=== PATIENT | male | born 1980 | race African-American/Black ===

== ENCOUNTER 2017-01-18 15:34 | Observation (INO) | payer BC ==
[2017-01-18] MEDS ORDERED: SODIUM CHLORIDE 0.9% 1,000 ML IV STA (16:17)
--- NOTE | 2017-01-18 16:21 | ED ---
General Adult HPI - General Chief complaint: Recheck/Abnormal Lab/Rx Stated complaint: Hyperglycemia Time Seen by Provider: 01/18/17 16:10 Source: patient, RN notes reviewed Mode of arrival: ambulatory Limitations: no limitations - History of Present Illness Initial comments: Patient is a 36-year-old male who presents emergency room today from urgent care with elevated blood sugar. Patient does admit that his had increased thirst and urination recently. Patient does admit that his family member is a diabetic checked his sugar the other day was grating 400. States child was family doctor but is now out of network. He states that he did go to an urgent care and advised him come here to the emergency room. He states that he checked his sugar there was greater than 400. He denies any other complaints or associated symptoms. Patient denies any recent fever, chills, shortness of breath, chest pain, back pain, abdominal pain, nausea or vomiting, numbness or tingling, dysuria or hematuria, constipation or diarrhea, headaches or visual changes, or any other complaints. - Related Data Home Medications Medication Instructions Recorded Confirmed L.acidoph,Paracasei, B.lactis 1 cap PO DAILY 06/29/15 01/18/17 [Probiotic] Fluticasone Nasal [place] [Flonase 1 spr EA NOSTRIL DAILY PRN 01/18/17 01/18/17 Nasal [place]] Allergies Allergy/AdvReac Type Severity Reaction Status Date / Time No Known Allergies Allergy Verified 01/18/17 16:33 Review of Systems ROS Statement: Those systems with pertinent positive or pertinent negative responses have been documented in the HPI. ROS Other: All systems not noted in ROS Statement are negative. Past Medical History Past Medical History: Liver Disease Additional Past Medical History / Comment(s): Non alocoholic fatty liver History of Any Multi-Drug Resistant Organisms: None Reported Past Surgical History: No Surgical Hx Reported Additional Past Surgical History / Comment(s): dental surg Past Anesthesia/Blood Transfusion Reactions: Unable to Obtain Additional Past Anesthesia/Blood Transfusion Reaction / Comment(s): no surg. Past Psychological History: No Psychological Hx Reported Smoking Status: Former smoker Past Alcohol Use History: Occasional Past Drug Use History: None Reported - Past Family History Mother Family Medical History: No Reported History General Exam - General Exam Comments Initial Comments: General: The patient is awake and alert, in no distress, and does not appear acutely ill. Eye: Pupils are equal, round and reactive to light, extra-ocular movements are intact. No nystagmus. There is normal conjunctiva bilaterally. No signs of icterus. Ears, nose, mouth and throat: There are moist mucous membranes and no oral lesions. Neck: The neck is supple, there is no tenderness or JVD. Cardiovascular: There is a regular rate and rhythm. No murmur, rub or gallop is appreciated. Respiratory: Lungs are clear to auscultation, respirations are non-labored, breath sounds are equal. No wheezes, stridor, rales, or rhonchi. Gastrointestinal: Soft, non-distended, non-tender abdomen without masses or organomegaly noted. There is no rebound or guarding present. No CVA tenderness. Bowel sounds are unremarkable. Musculoskeletal: Normal ROM, no tenderness. Strength 5/5. Sensation intact. Pulses equal bilaterally 2+. Neurological: A&O x 3. CN II-XII intact, There are no obvious motor or sensory deficits. Coordination appears grossly intact. Speech is normal. Skin: Skin is warm and dry and no rashes or lesions are noted. Psychiatric: Cooperative, appropriate mood & affect, normal judgment. Limitations: no limitations Course Vital Signs 01/18/17 01/18/17 15:38 17:41 Temperature 99 F Pulse Rate 105 H 101 H Respiratory 18 18 Rate Blood Pressure 147/95 158/96 O2 Sat by Pulse 99 97 Oximetry Medical Decision Making - Medical Decision Making Patient reexamined at this time shows no signs of distress. He has had polyuria and polydipsia. Patient asked on positive. Patient does have 4+ glucose and 3+ ketones in his urine. Patient will be admitted for new onset diabetes. Started on the DKA orders. Patient is aware the plan states understanding and is in agreement. - Lab Data Result diagrams: 01/18/17 16:22 01/18/17 16:22 Lab Results 01/18/17 01/18/17 01/18/17 Range/Units 16:22 16:22 16:44 WBC 8.9 (3.8-10.6) k/uL RBC 5.73 (4.30-5.90) m/uL Hgb 16.4 (13.0-17.5) gm/dL Hct 48.7 (39.0-53.0) % MCV 85.0 (80.0-100.0) fL MCH 28.6 (25.0-35.0) pg MCHC 33.6 (31.0-37.0) g/dL RDW 13.2 (11.5-15.5) % Plt Count 294 (150-450) k/uL Neutrophils % 70 % Lymphocytes % 22 % Monocytes % 5 % Eosinophils % 1 % Basophils % 1 % Neutrophils # 6.2 (1.3-7.7) k/uL Lymphocytes # 2.0 (1.0-4.8) k/uL Monocytes # 0.4 (0-1.0) k/uL Eosinophils # 0.1 (0-0.7) k/uL Basophils # 0.1 (0-0.2) k/uL Sodium 135 L (137-145) mmol/L Potassium 4.1 (3.5-5.1) mmol/L Chloride 99 (98-107) mmol/L Carbon Dioxide 21 L (22-30) mmol/L Anion Gap 15 mmol/L BUN 11 (9-20) mg/dL Creatinine 0.70 (0.66-1.25) mg/dL Est GFR (MDRD) Af Amer >60 (>60 ml/min/1.73 sqM) Est GFR (MDRD) Non-Af >60 (>60 ml/min/1.73 sqM) Glucose 287 H (74-99) mg/dL POC Glucose (mg/dL) (75-99) mg/dL POC Glu Traffic Sergeant ID Calcium 10.2 (8.4-10.2) mg/dL Total Bilirubin 0.6 (0.2-1.3) mg/dL AST 86 H (17-59) U/L ALT 249 H (21-72) U/L Alkaline Phosphatase 118 (38-126) U/L Total Protein 8.7 H (6.3-8.2) g/dL Albumin 5.0 (3.5-5.0) g/dL Urine Color Light Yellow Urine Appearance Clear (Clear) Urine pH 5.0 (5.0-8.0) Ur Specific [place] 1.026 (1.001-1.035) Urine Protein Negative (Negative) Urine Glucose (UA) 4+ H (Negative) Urine Ketones 3+ H (Negative) Urine Blood Negative (Negative) Urine Nitrite Negative (Negative) Urine Bilirubin Negative (Negative) Urine Urobilinogen <2.0 (<2.0) mg/dL Ur Leukocyte Esterase Negative (Negative) Acetone, Qual Positive (Negative) 01/18/17 Range/Units 17:32 WBC (3.8-10.6) k/uL RBC (4.30-5.90) m/uL Hgb (13.0-17.5) gm/dL Hct (39.0-53.0) % MCV (80.0-100.0) fL MCH (25.0-35.0) pg MCHC (31.0-37.0) g/dL RDW (11.5-15.5) % Plt Count (150-450) k/uL Neutrophils % % Lymphocytes % % Monocytes % % Eosinophils % % Basophils % % Neutrophils # (1.3-7.7) k/uL Lymphocytes # (1.0-4.8) k/uL Monocytes # (0-1.0) k/uL Eosinophils # (0-0.7) k/uL Basophils # (0-0.2) k/uL Sodium (137-145) mmol/L Potassium (3.5-5.1) mmol/L Chloride (98-107) mmol/L Carbon Dioxide (22-30) mmol/L Anion Gap mmol/L BUN (9-20) mg/dL Creatinine (0.66-1.25) mg/dL Est GFR (MDRD) Af Amer (>60 ml/min/1.73 sqM) Est GFR (MDRD) Non-Af (>60 ml/min/1.73 sqM) Glucose (74-99) mg/dL POC Glucose (mg/dL) 238 H (75-99) mg/dL POC Glu Traffic Sergeant ID Bowling, Ana Calcium (8.4-10.2) mg/dL Total Bilirubin (0.2-1.3) mg/dL AST (17-59) U/L ALT (21-72) U/L Alkaline Phosphatase (38-126) U/L Total Protein (6.3-8.2) g/dL Albumin (3.5-5.0) g/dL Urine Color Urine Appearance (Clear) Urine pH (5.0-8.0) Ur Specific [place] (1.001-1.035) Urine Protein (Negative) Urine Glucose (UA) (Negative) Urine Ketones (Negative) Urine Blood (Negative) Urine Nitrite (Negative) Urine Bilirubin (Negative) Urine Urobilinogen (<2.0) mg/dL Ur Leukocyte Esterase (Negative) Acetone, Qual (Negative) Disposition Clinical Impression: New onset type 2 diabetes mellitus Disposition: ADMITTED IP TO THIS [facility] Condition: Stable Referrals: None,Stated [Primary Care Provider] - 1-2 days Time of Disposition: 17:53
[2017-01-18 16:33] LABS: Basophils # (A) 0.1 k/uL (0-0.2); Basophils % (A) 1 %; CH 29.3; CHCM 34.6; Eosinophils # (A) 0.1 k/uL (0-0.7); Eosinophils % (A) 1 %; HCT 48.7 % (39.0-53.0); HDW 2.74; HGB 16.4 gm/dL (13.0-17.5); Luc # (Auto) 0.17; Luc % (Auto) 2; Lymphocytes % (A) 22 %; MCH 28.6 pg (25.0-35.0); MCHC 33.6 g/dL (31.0-37.0); Mean Platelet Volume 7.7; Monocytes # (A) 0.4 k/uL (0-1.0); Monocytes % (A) 5 %; Neutrophils # (A) 6.2 k/uL (1.3-7.7); Neutrophils % (A) 70 %; RBC 5.73 m/uL (4.30-5.90); RDW 13.2 % (11.5-15.5); WBC 8.9 k/uL (3.8-10.6); WBC (Perox) 8.55
[2017-01-18 16:43] LABS: ALT 249 U/L (21-72); AST 86 U/L (17-59); Alkaline Phosphatase 118 U/L (38-126); Anion Gap 15 mmol/L; Blood Urea Nitrogen 11 mg/dL (9-20); Calcium 10.2 mg/dL (8.4-10.2); Carbon Dioxide 21 mmol/L (22-30); Chloride 99 mmol/L (98-107); Glucose 287 mg/dL (74-99); Non-African American GFR(MDRD) >60 (>60 ml/min/1.73 sqM); Potassium 4.1 mmol/L (3.5-5.1); Sodium 135 mmol/L (137-145); Total Bilirubin 0.6 mg/dL (0.2-1.3); Total Protein 8.7 g/dL (6.3-8.2)
[2017-01-18 16:55] LABS: Appearance,Urine Clear (Clear); Bilirubin,Urine Negative (Negative); Glucose,Urine (UA) 4+ (Negative); Leukocyte Esterase,Urine Negative (Negative); Nitrite,Urine Negative (Negative); Protein,Urine Negative (Negative); Specific Gravity,Urine 1.026 (1.001-1.035); UA Billing (MACRO vs. MICRO) CHEM; Urobilinogen,Urine <2.0 mg/dL (<2.0)
[2017-01-18 17:19] LABS: Ketones,Urine 3+ (Negative)
[2017-01-18 17:46] LABS: Glucose,Whole Blood 238 mg/dL (75-99)
[2017-01-18 18:50] LABS: Glucose,Whole Blood 213 mg/dL (75-99)
[2017-01-18 19:51] LABS: Glucose,Whole Blood 198 mg/dL (75-99)
[2017-01-18] MEDS: INSULIN REGULAR 100 UNIT in SODIUM CHLORIDE 0.9% 100 ML IV SCH (20:24)
[2017-01-18 20:50] LABS: Anion Gap 10 mmol/L; Blood Urea Nitrogen 9 mg/dL (9-20); Carbon Dioxide 25 mmol/L (22-30); Chloride 101 mmol/L (98-107); Glucose 221 mg/dL (74-99); Non-African American GFR(MDRD) >60 (>60 ml/min/1.73 sqM); Phosphorus 3.5 mg/dL (2.5-4.5); Sodium 136 mmol/L (137-145)
[2017-01-18 21:08] LABS: Glucose,Whole Blood 164 mg/dL (75-99)
[2017-01-18] MEDS: SODIUM CHLORIDE 0.9% 1,000 ML IV SCH (22:05)
[2017-01-18] MEDS: D5-0.45% NACL WITH KCL 20MEQ/L 1,000 ML IV SCH (22:05)
[2017-01-18 22:20] LABS: Glucose,Whole Blood 142 mg/dL (75-99)
[2017-01-18 23:17] LABS: Glucose,Whole Blood 127 mg/dL (75-99)
[2017-01-19 00:08] LABS: Glucose,Whole Blood 116 mg/dL (75-99)
[2017-01-19] MEDS: SODIUM CHLORIDE 0.9% 1,000 ML IV SCH ×5 (00:19→17:50)
[2017-01-19 00:55] LABS: Anion Gap 7 mmol/L; Blood Urea Nitrogen 8 mg/dL (9-20); Carbon Dioxide 26 mmol/L (22-30); Chloride 103 mmol/L (98-107); Glucose 137 mg/dL (74-99); Non-African American GFR(MDRD) >60 (>60 ml/min/1.73 sqM); Potassium 3.6 mmol/L (3.5-5.1); Sodium 136 mmol/L (137-145)
[2017-01-19 01:12] LABS: Glucose,Whole Blood 156 mg/dL (75-99)
[2017-01-19 02:13] LABS: Glucose,Whole Blood 166 mg/dL (75-99)
[2017-01-19] MEDS ORDERED: INSULIN NPH 300 UNIT/3 ML VIAL SQ ONE (02:20)
[2017-01-19 03:05] LABS: Glucose,Whole Blood 216 mg/dL (75-99)
[2017-01-19] MEDS: INSULIN REGULAR 100 UNIT in SODIUM CHLORIDE 0.9% 100 ML IV SCH (04:12)
[2017-01-19] MEDS: D5-0.45% NACL WITH KCL 20MEQ/L 1,000 ML IV SCH ×3 (05:10→14:29)
[2017-01-19 06:09] LABS: Glucose,Whole Blood 220 mg/dL (75-99)
[2017-01-19 06:26] LABS: Anion Gap 9 mmol/L; Blood Urea Nitrogen 7 mg/dL (9-20); Carbon Dioxide 24 mmol/L (22-30); Chloride 103 mmol/L (98-107); Non-African American GFR(MDRD) >60 (>60 ml/min/1.73 sqM); Phosphorus 3.5 mg/dL (2.5-4.5); Potassium 3.9 mmol/L (3.5-5.1); Sodium 136 mmol/L (137-145)
[2017-01-19] MEDS: INSULIN ASPART 100 UNIT/ML 1 ML 10 ML VIAL SQ SCH ×7 (07:05→21:30)
[2017-01-19] MEDS: IBUPROFEN 600 MG TAB PO PRN (08:19)
[2017-01-19 10:49] VITALS: BMI 43.6
[2017-01-19 11:30] LABS: Glucose,Whole Blood 217 mg/dL (75-99)
[2017-01-19] MEDS ORDERED: FLUTICASONE 50MCG/SPRAY NASAL 16GM EA NOSTRIL PRN (12:50)
[2017-01-19 16:44] LABS: Glucose,Whole Blood 177 mg/dL (75-99)
[2017-01-19] MEDS ORDERED: HYDROcodone/APAP 5-325MG 1 EACH TAB PO PRN (16:49)
[2017-01-19] MEDS: metFORMIN 500 MG TAB PO SCH (17:30)
--- NOTE | 2017-01-19 18:41 | HP ---
HISTORY AND PHYSICAL DATE OF SERVICE: 01/19/2017. CHIEF COMPLAINT: Hyperglycemia. HISTORY OF PRESENT ILLNESS: This 36-year-old gentleman with a past history of liver disease and nonalcoholic fatty liver, history of hay fever, being followed by no primary physician in the outpatient setting apparently was with his friend who had diabetes mellitus and they were checking blood sugar blood sugars which were extremely high. The patient had complains of polyuria, polydipsia, and other changes and the patient came to [facility] and admitted for further evaluation and treatment. On admission, the baseline labs showed a glucose elevated and serum acetone was positive also. There is no history of fever, rigors, no headache, loss of consciousness. PAST MEDICAL HISTORY: Of liver disease and history of fatty liver and hay fever. MEDICATIONS: Prior to admission include: 1. Flonase nasal spray. 2. Lactobacillus 1 daily. ALLERGIES: None. FAMILY HISTORY: History of diabetes in the family. SOCIAL HISTORY: Previous smoker. No history of current smoking, alcohol intake. REVIEW OF SYSTEMS: ENT: No diminished hearing or vision. Cardio system: No angina or palpitations. Respirations: No cough. GI no nausea. as mentioned earlier. Nervous systems: No numbness or weakness. Allergy/Immunology: No asthma or hayfever. Musculoskeletal as mentioned earlier. Hematology/Oncology: No history of anemia. Endocrine: As mentioned earlier. CONSTITUTIONAL: As mentioned earlier. Dermatology: Negative. Rheumatology: Negative. Psychiatric: As mentioned earlier. PHYSICAL EXAMINATION: The patient is alert and oriented times three. Pulse 93, blood pressure 149/80, respiration 18, temp 97.3, pulse ox 98% on room air. HEENT: Conjunctivae normal. Oral mucosa moist. Neck is no jugular venous distention. No No carotid bruit. No lymph node enlargement. Cardiovascular system: S1, S2 muffled. Respiratory: Breath sounds diminished in the bases. A few scattered rhonchi. No crackles. ABDOMEN: Soft, nontender. No mass palpable. No hepatosplenomegaly. Obese. Legs no edema, no swelling. Central nervous system: Higher functions as mentioned earlier. Moves all four extremities. No focal deficits. Lymphatics: No lymph nodes palpable in the neck, axillae or groin. Skin no ulcer, rashes or bleeding. LABS: Accu-Cheks 222, 70, 177, sodium 136. ASSESSMENT: 1. Diabetes mellitus type 1, possibly new onset with uncontrolled with possibly early ketoacidosis. 2. Hyponatremia. 3. Increased AST/ALT hepatitis of undetermined etiology. 4. Obesity, with body mass index of 43.6. 5. History of nonalcoholic fatty liver disease. 6. History hay fever. 7. Remote history of nicotine dependence. RECOMMENDATIONS AND DISCUSSION: This 36-year-old gentleman who presented with multiple complex medical issues, we will monitor the patient closely, continue the current management and symptomatic treatment. Otherwise we will start the patient on insulin. Hemoglobin A1c is not available. Otherwise, overall prognosis extremely guarded because of multiple complex medical issues and I would also recommend Glucophage also in a small dose. See orders for details. I would also recommend DVT prophylaxis and as well as GI prophylaxis. Prognosis guarded. Further recommendations to follow. MMODL / IJN: [id number] /
[2017-01-19 21:07] LABS: Glucose,Whole Blood 204 mg/dL (75-99)
[2017-01-19] MEDS: HEPARIN SODIUM,PORCINE 5,000 UNIT/ML 1 ML VIAL SQ SCH (21:30)
[2017-01-19] MEDS: INSULIN DETEMIR 100 UNIT/ML 10 ML VIAL SQ SCH (21:30)
[2017-01-20 06:09] LABS: Glucose,Whole Blood 194 mg/dL (75-99)
[2017-01-20 06:19] LABS: Basophils % (A) 1 %; CHCM 33.4; Eosinophils # (A) 0.1 k/uL (0-0.7); Eosinophils % (A) 1 %; HCT 45.2 % (39.0-53.0); HDW 2.56; HGB 14.6 gm/dL (13.0-17.5); Luc # (Auto) 0.14; Luc % (Auto) 3; Lymphocytes # (A) 1.6 k/uL (1.0-4.8); Lymphocytes % (A) 30 %; MCH 28.1 pg (25.0-35.0); MCHC 32.2 g/dL (31.0-37.0); MCV 87.2 fL (80.0-100.0); Mean Platelet Volume 7.7; Monocytes # (A) 0.4 k/uL (0-1.0); Monocytes % (A) 8 %; Neutrophils # (A) 3.1 k/uL (1.3-7.7); Neutrophils % (A) 58 %; RBC 5.19 m/uL (4.30-5.90); RDW 14.6 % (11.5-15.5); WBC 5.3 k/uL (3.8-10.6); WBC (Perox) 5.17
[2017-01-20 06:30] LABS: ALT 262 U/L (21-72); AST 105 U/L (17-59); Alkaline Phosphatase 91 U/L (38-126); Anion Gap 6 mmol/L; Blood Urea Nitrogen 5 mg/dL (9-20); Calcium 8.9 mg/dL (8.4-10.2); Carbon Dioxide 25 mmol/L (22-30); Chloride 106 mmol/L (98-107); Glucose 204 mg/dL (74-99); Non-African American GFR(MDRD) >60 (>60 ml/min/1.73 sqM); Potassium 3.7 mmol/L (3.5-5.1); Sodium 137 mmol/L (137-145); Total Bilirubin 0.7 mg/dL (0.2-1.3); Total Protein 6.3 g/dL (6.3-8.2)
[2017-01-20] MEDS: SODIUM CHLORIDE 0.9% 1,000 ML IV SCH ×4 (06:31→21:30)
[2017-01-20] MEDS: INSULIN ASPART 100 UNIT/ML 1 ML 10 ML VIAL SQ SCH ×7 (07:00→21:30)
[2017-01-20] MEDS: PANTOPRAZOLE 40 MG TABLET PO SCH (07:01)
[2017-01-20] MEDS: metFORMIN 500 MG TAB PO SCH ×2 (07:01→16:46)
[2017-01-20] MEDS: LACTOBACILLUS ACIDOPH & BULGAR 1 EACH PACKET PO SCH (08:42)
[2017-01-20] MEDS: HEPARIN SODIUM,PORCINE 5,000 UNIT/ML 1 ML VIAL SQ SCH ×2 (08:44→21:30)
[2017-01-20 11:49] LABS: Glucose,Whole Blood 201 mg/dL (75-99)
[2017-01-20 16:37] LABS: Glucose,Whole Blood 94 mg/dL (75-99)
--- NOTE | 2017-01-20 16:45 | PN ---
PROGRESS NOTE DATE OF SERVICE: 01/20/2017 INTERVAL HISTORY: This 36-year-old gentleman admitted with new onset diabetes type 1 and possibly as well as hypoglycemia is being closely monitored at this time. The patient is still learning how to take injections. Diabetic education is underway. No chest pain. No palpitations. No fever. EXAM: Alert, oriented times three. Pulse 79. Blood pressure 140/74, respiration 18, temperature 97.8, pulse ox 97% on room air. HEENT: Conjunctivae normal. NECK: No jugular venous distention. Cardiovascular: S1, S2 muffled. Respiratory: Breath sounds diminished at the bases. No rhonchi and no crackles. Abdomen is soft, obese, nontender. Legs are no edema. Central nervous system: No focal deficits. LABS: Accu-Cheks 204, 194, 201. AST, ALT is elevated. Albumin is 3.4. ASSESSMENT: 1. Diabetes type 1 new onset uncontrolled with possibly early ketoacidosis present on admission. 2. Hyponatremia. 3. Increased AST, ALT, hepatitis of undetermined etiology. 4. Obesity with body mass index 43.6. 5. History of nonalcoholic fatty liver disease. 6. History of hayfever. 7. Remote history of nicotine dependence. RECOMMENDATIONS AND DISCUSSION: Recommend to continue current medications. Continue with monitoring, symptomatic treatment. Continue current medications. Repeat labs. Otherwise monitor blood sugars closely. Patient is on insulin. Diabetic education. records manager to check for the coverage and affordability. Otherwise, monitor. Prognosis guarded. Further recommendations to follow. MMODL / IJN: [id number] /
[2017-01-20] MEDS: IBUPROFEN 600 MG TAB PO PRN ×2 (16:46→21:32)
[2017-01-20] MEDS: INSULIN DETEMIR 100 UNIT/ML 10 ML VIAL SQ SCH (21:30)
[2017-01-20 21:31] LABS: Glucose,Whole Blood 142 mg/dL (75-99)
[2017-01-21] MEDS: SODIUM CHLORIDE 0.9% 1,000 ML IV SCH ×2 (05:57→06:48)
[2017-01-21 06:07] LABS: Glucose,Whole Blood 164 mg/dL (75-99)
[2017-01-21 06:34] LABS: Basophils % (A) 0 %; CH 29.1; CHCM 33.7; Eosinophils # (A) 0.1 k/uL (0-0.7); Eosinophils % (A) 1 %; HCT 43.3 % (39.0-53.0); HDW 2.77; HGB 14.2 gm/dL (13.0-17.5); Luc # (Auto) 0.12; Luc % (Auto) 2; Lymphocytes # (A) 1.7 k/uL (1.0-4.8); Lymphocytes % (A) 29 %; MCH 28.5 pg (25.0-35.0); MCHC 32.9 g/dL (31.0-37.0); MCV 86.6 fL (80.0-100.0); Mean Platelet Volume 7.1; Monocytes # (A) 0.5 k/uL (0-1.0); Monocytes % (A) 8 %; Neutrophils # (A) 3.6 k/uL (1.3-7.7); Neutrophils % (A) 60 %; RDW 13.3 % (11.5-15.5); WBC (Perox) 5.51
[2017-01-21 06:48] LABS: ALT 255 U/L (21-72); AST 84 U/L (17-59); Alkaline Phosphatase 94 U/L (38-126); Anion Gap 8 mmol/L; Blood Urea Nitrogen 6 mg/dL (9-20); Calcium 9.2 mg/dL (8.4-10.2); Carbon Dioxide 28 mmol/L (22-30); Chloride 102 mmol/L (98-107); Cholesterol 206 mg/dL (<200); Glucose 176 mg/dL (74-99); HDL Cholesterol 45 mg/dL (40-60); Non-African American GFR(MDRD) >60 (>60 ml/min/1.73 sqM); Potassium 3.6 mmol/L (3.5-5.1); Sodium 138 mmol/L (137-145); Total Bilirubin 0.4 mg/dL (0.2-1.3); Total Protein 6.5 g/dL (6.3-8.2)
[2017-01-21] MEDS: INSULIN ASPART 100 UNIT/ML 1 ML 10 ML VIAL SQ SCH ×4 (07:01→12:07)
[2017-01-21] MEDS: PANTOPRAZOLE 40 MG TABLET PO SCH (07:01)
[2017-01-21] MEDS: metFORMIN 500 MG TAB PO SCH (07:01)
[2017-01-21] MEDS: HEPARIN SODIUM,PORCINE 5,000 UNIT/ML 1 ML VIAL SQ SCH (08:04)
[2017-01-21] MEDS: LACTOBACILLUS ACIDOPH & BULGAR 1 EACH PACKET PO SCH (08:05)
[2017-01-21 11:47] VITALS: BP 137/93; PULSE 90; RESP 18; TEMP 98
[2017-01-21 12:03] LABS: Glucose,Whole Blood 187 mg/dL (75-99)
--- NOTE | 2017-01-21 14:57 | P.DS ---
Providers Date of admission: 01/18/17 17:56 Attending physician: Mendel Olea Primary care physician: Stated None Hospital Course: This 36-year-old gent woman was admitted with a new onset diabetes was type I and possibly early ketoacidosis. Patient was treated with the insulin. Patient improved significantly. Patient be discharged in a stable condition with guarded prognosis. On exam vitals are stable. Cardio S1 and S2 normal. Respirator system clear to auscultation. Abdomen soft nontender. Final diagnosis 1. Diabetes mellitus type 1 onset uncontrolled with a possible early ketoacidosis present on admission. 2. Hyponatremia. 3. Increased AST ALT hepatitis of undetermined etiology. 4. Obesity body mass and is up at 43.6. 5. History of nonalcoholic fatty liver disease. 6. History of hayfever. 7. Remote h/o nicotine dependence. Patient Condition at Discharge: Stable Plan - Discharge Summary Discharge Rx Participant: No New Discharge Prescriptions: New Insulin Aspart [NovoLOG (formulary)] 14 unit SQ AC-TID #1 vial Insulin Detemir [Levemir] 42 unit SQ HS #1 vial Continue L.acidoph,Paracasei, B.lactis [Probiotic] 1 cap PO DAILY Fluticasone Nasal [place] [Flonase Nasal [place]] 1 spr EA NOSTRIL DAILY PRN PRN Reason: Allergy Symptoms Discharge Medication List L.acidoph,Paracasei, B.lactis [Probiotic] 1 cap PO DAILY 06/29/15 [History] Fluticasone Nasal [place] [Flonase Nasal [place]] 1 spr EA NOSTRIL DAILY PRN [History] Insulin Aspart [NovoLOG (formulary)] 14 unit SQ AC-TID #1 vial 01/21/17 [Rx] Insulin Detemir [Levemir] 42 unit SQ HS #1 vial 01/21/17 [Rx] Follow up Appointment(s)/Referral(s): Gladys Hitchcock MD [REFERRING] - 01/25/17 2:00 pm Ambulatory/Diagnostic Orders: Complete Blood Count w/diff [LAB.AMB] Time Frame: 3 Days, Location: Determined By Patient Patient Instructions/Handouts: Heart Healthy Diet (DC), How to Check Your Blood Sugar (DC), Diabetic Ketoacidosis (DC), Basic Carbohydrate Counting (DC), Hemoglobin A1c (GEN) Activity/Diet/Wound Care/Special Instructions: Diet: COnsist. Carb, cardiac, low cholesterol accu cheks achs Activity: limited Till F/u Discharge Disposition: HOME SELF-CARE
== END 2017-01-21 14:23 | disposition home or self-care (01) ==
LOC: EC 15:34 → INTOOBSV 17:56 → 6SEL 17:56
PROVIDERS: ADMIT Internal Medicine; ATTEND Internal Medicine
DX: E10.65 Type 1 diabetes mellitus with hyperglycemia (principal); E87.1 Hypo-osmolality and hyponatremia; R79.89 Other specified abnormal findings of blood chemistry; K76.0 Fatty (change of) liver, not elsewhere classified; E66.9 Obesity, unspecified; Z68.41 Body mass index [BMI] 40.0-44.9, adult; Z87.891 Personal history of nicotine dependence; Z83.3 Family history of diabetes mellitus; Z79.899 Other long term (current) drug therapy
CPT/HCPCS: 96361 ×2; 96365; 96366 ×2; 96372 ×3; 99284; 36415; 80051 ×2; 80061; 80053 ×3; 82565 ×2; 82009; 84100 ×2; 82947 ×2; 84520 ×2; 85025 ×3; 81003; 83036; G0378 ×5; J1644 ×3

== ENCOUNTER → 2017-06-25 | Outpatient (CLI) | payer BC ==
[2017-06-25 20:16] LABS: Blood Urea Nitrogen 10 mg/dL (9-20)
--- NOTE | 2017-06-26 03:13 | MR ---
EXAMINATION TYPE: MR brain/orbits wo/w con DATE OF EXAM: 06/25/2017 COMPARISON: NONE HISTORY: Headache, Double Vision, Gadavist 12 TECHNIQUE: Multiplanar, multisequence images of the brain and brainstem is performed without and with IV contras t, utilizing 12.5 mL intravenous Gadavist . FINDINGS: Ventricles and sulci appear normal. There is no mass effect nor midline shift. There is no sign of intracranial hemorrhage. Brainstem is intact. There is no evidence of orbital mass. The globe s are symmetric. There is no evidence of cortical infarct. Extraocular muscles appear normal. Optic n erves appear normal. Sella turcica appears normal. Pituitary stalk is in the midline. The optic chias m appears normal. I see no pathologic enhancement. IMPRESSION: Normal MR scan of the brain. I do not see a cause for double vision.
== END | disposition home or self-care (01) ==
LOC: RADMRIMAIN 19:15
PROVIDERS: ATTEND Ophthalmology
DX: H50.00 Unspecified esotropia (principal); H53.2 Diplopia; E11.9 Type 2 diabetes mellitus without complications
CPT/HCPCS: 82565; 84520; 70543; 70553; 36415; A9581

== ENCOUNTER → 2019-08-26 | Outpatient (CLI) | payer BC ==
--- NOTE | 2019-08-26 15:50 | CONS ---
CONSULTATION DATE OF SERVICE: 08/26/2019 This patient is a 39-year-old gentleman who has been evaluated in the sleep center for possible obstructive sleep apnea-hypopnea syndrome. HISTORY OF PRESENT ILLNESS/SLEEP/WAKE EVALUATION: Patient's usual sleep schedule on working days is from around 9 or 11 p.m. until 7 or 8:30 a.m., on weekends from around 10 to midnight until 8 or 10 a.m. He does have problems with falling asleep. He usually watches his cell phone in his bedroom. He usually sleeps on the back position. No clear information about his snoring because he sleeps by himself. He wakes up from sleep 3 times with nocturia. No history of hypnagogic hallucinations, sleep paralysis or cataplexy. In the morning the patient wakes up tired, falling asleep during the day. [place] Sleepiness Scale is significantly increased at 11. PAST MEDICAL HISTORY: Positive for diabetes mellitus, acid reflux, liver problems. PAST SURGICAL HISTORY: Cholecystectomy, right eye surgery. MEDICATIONS: Metformin. SOCIAL HISTORY: Positive for smoking in the past. Quit smoking about 13 years ago. Alcohol consumption occasional. FAMILY HISTORY: Hypertension, heart problems, hyperlipidemia, stroke by grandfather, asthma, snoring, diabetes. REVIEW OF SYSTEMS: Multiple awakenings from sleep, sleepiness during the day. PHYSICAL EXAMINATION: GENERAL: A pleasant -[place] gentleman without distress. VITAL SIGNS: BP 128/83, HR 90, RR 16, height 5 feet 7-1/2 inches, weight 319, body mass index 49.2, temperature 98.1, oxygen saturation at room air 96%. HEENT: PERRLA, EOMI. Evaluation of oropharynx showed tongue protrudes midline. Extremely low position of soft palate. Mallampati IV. NECK: Supple. No JVD. Thyroid is not palpable. Wide neck; 19 inches in circumference. LUNGS: Clear to percussion and to auscultation. Good air exchange. No wheezing or rhonchi. HEART: S1, S2 regular. No murmurs, gallops or rubs. ABDOMEN: Obese. EXTREMITIES: No clubbing or cyanosis. FACULTY MEMBER: Awake, alert, and oriented X3. Cranial nerves 2 to 7 intact. There is no fasciculation or atrophy. noted. No focal deficits observed. IMPRESSION: 1. Patient lives by himself. No information about snoring. Extremely low position of soft palate, multiple awakenings from sleep, wide neck, sleepiness; obstructive sleep apnea-hypopnea syndrome. 2. Obesity; body mass index 49.2. 3. Diabetes mellitus. 4. History of acid reflux. 5. History of liver problems. 6. Status post cholecystectomy. 7. Status post right eye surgery. PLAN: 1. Polysomnography for evaluation of patient's breathing during sleep. 2. CPAP/BiPAP titration if sleep study confirms obstructive sleep apnea-hypopnea syndrome. 3. Preferable position during sleep on the side. 4. No driving if patient feels any sleepiness. 5. I will see patient for follow up visit to explain results of testing and following plan. Thank you very much for referring this patient for consultation. Sincerely, Hemanth Brar MD, PhD, FAASM Diplomat of [place] [employer] [place] [employer] [facility] [place] MMODL / IJN: [id number] /
== END | disposition home or self-care (01) ==
LOC: SLEEP 11:33
PROVIDERS: ATTEND Internal Medicine
DX: G47.33 Obstructive sleep apnea (adult) (pediatric) (principal); E66.9 Obesity, unspecified; Z68.42 Body mass index [BMI] 45.0-49.9, adult; E11.9 Type 2 diabetes mellitus without complications; Z87.891 Personal history of nicotine dependence; Z87.19 Personal history of other diseases of the digestive system; Z98.41 Cataract extraction status, right eye; Z90.49 Acquired absence of other specified parts of digestive tract; Z79.84 Long term (current) use of oral hypoglycemic drugs
CPT/HCPCS: 99211

== ENCOUNTER → 2021-10-24 | Outpatient (CLI) | payer BC ==
--- NOTE | 2021-10-24 15:06 | P.SLEEP ---
History of Present Illness H&P Date: 10/24/21 This is a 41-year-old male patient is coming in regarding his obstructive sleep apnea. The patient was seen in our sleep center approximately 3 years ago and at that time he was evaluated by Dr. Brar. He was seen in consultation and subsequently he was suspected to have obstructive sleep apnea and he was given a screening polysomnogram. The screening polysomnogram was done on 09/09/2019 and the patient was diagnosed having severe obstructive sleep apnea. I reviewed the screening polysomnogram and the patient's had a sleep efficiency of 93.4%. The patient had adequate sleep architecture. The AHI was recorded to be at 30.4 worse during REM and worse during supine body position. The patient also demonstrated mild nocturnal oxygen desaturation with a minimum pulse ox of 69%. He was offered CPAP therapy and he was unable to complete a titration as we went into a COVID 19 pandemic. For now, the patient is coming in with the same symptoms. He works locally for the [employer] office. He feels quite tired and fatigued during the day. His current Crane score is at 12. He snores loudly. He lives alone at home. Has not been told to stop breathing or quits breathing at night during sleep. The patient goes to bed at around 10 PM and he wakes up between 7 and 8 AM in the morning. He sleeps in various body positions. He is a nosebleed there. No restlessness in his lower extremities. No sugars with pain or shortness of breath or heartburn. No sleep paralysis. No hallucinations. No cataplexy. He drinks 2 shots of espresso coffee in the morning and he has no issues with alcohol use or substance abuse. The patient has diet-controlled diabetes mellitus. He has nonalcoholic chronic liver disease/Becker. No other issues otherwise for now.. Note that he has not gained any weight over this past 3 years. Review of Systems Constitutional: Reports daytime sleepiness, Reports fatigue Eyes: denies as per HPI, denies blurred vision, denies bulging eye, denies decreased vision, denies diplopia, denies discharge, denies dry eye, denies irritation, denies itching, denies pain, denies photophobia, denies loss of peripheral vision, denies loss of vision, denies tunnel vision/blind spots Ears: deny: decreased hearing, ear discharge, earache, tinnitus Ears, nose, mouth and throat: Reports as per HPI Breasts: absent: as per HPI, gynecomastia Cardiovascular: Reports as per HPI Respiratory: Reports as per HPI, Reports snoring Gastrointestinal: Reports as per HPI Genitourinary: Reports as per HPI Musculoskeletal: Reports as per HPI Musculoskeletal: absent: ankle pain, ankle stiffness, ankle swelling, as per HPI, elbow pain, elbow stiffness, elbow swelling, foot pain, foot stiffness, foot swelling, hand pain, hand stiffness, hand swelling, hip pain, hip stiffne ss, hip swelling, knee pain, knee stiffness, knee swelling, shoulder pain, shoulder stiffness, shoulder swelling, wrist pain, wrist stiffness, wrist swelling Integumentary: Reports as per HPI Neurological: Reports as per HPI Psychiatric: Reports as per HPI Endocrine: Reports as per HPI Hematologic/Lymphatic: Reports as per HPI Allergic/Immunologic: Reports as per HPI Past Medical History Past Medical History: Diabetes Mellitus, Liver Disease, Sleep Apnea/CPAP/BIPAP Additional Past Medical History / Comment(s): Non alocoholic fatty liver, hay fever History of Any Multi-Drug Resistant Organisms: None Reported Past Surgical History: No Surgical Hx Reported Additional Past Surgical History / Comment(s): dental surg Past Anesthesia/Blood Transfusion Reactions: Unable to Obtain Additional Past Anesthesia/Blood Transfusion Reaction / Comment(s): no surg. Past Psychological History: No Psychological Hx Reported Past Alcohol Use History: Occasional Past Drug Use History: None Reported - Past Family History Mother Family Medical History: No Reported History Medications and Allergies Home Medications Medication Instructions Recorded Confirmed Type L.acidoph,Paracasei, B.lactis 1 cap PO DAILY 06/29/15 01/18/17 History [Probiotic] Fluticasone Nasal [place] [Flonase 1 spr EA NOSTRIL DAILY PRN 01/18/17 04/23/17 History Nasal [place]] INSULIN ASPART (NovoLOG) [NovoLOG 14 unit SQ AC-TID #1 vial 01/21/17 04/23/17 Rx (formulary)] Insulin Detemir (Levemir) [Levemir] 42 unit SQ HS #1 vial 01/21/17 04/23/17 Rx Allergies Allergy/AdvReac Type Severity Reaction Status Date / Time No Known Allergies Allergy Verified 04/23/17 11:46 Physical Exam Patient has a blood pressure of 111/73, pulse is 110, respirations 16, temperature 98.8, oxygen saturation is 98% and the patient has a weight of 315 pounds and the height is 5 feet and 7 inches and a body mass index is 40.4. His current Crane score is at 12. His neck size is 18 and 3 quarts of an inch The patient appeared well nourished and normally developed. Vital signs as documented. Head exam is unremarkable. No scleral icterus or corneal arcus noted. Neck is without jugular venous distension, thyromegaly, or carotid bruits. Carotid upstrokes are brisk bilaterally. The patient has a Mallampati class IV Lungs are clear to auscultation and percussion. Cardiac exam reveals the PMI to be normally sized and situated. Rhythm is regular. First and second heart sounds normal. No murmurs, rubs or gallops. Abdominal exam reveals normal bowel sounds, no masses, no organomegaly and no aortic enlargement. Extremities are nonedematous and both femoral and pedal pulses are normal.Examination of the skin revealed no evidence of significant rashes, suspicious appearing nevi or other concerning lesions.Neurologically, the patient is awake and alert and the patient does not have any focal neurological deficit. Cranial nerves are essentially intact. Assessment and Plan Plan: Symptomatic severe obstructive sleep apnea. Based on a polysomnogram that was done on 09/09/2019, the patient had an AHI of 30, worse during REM sleep with an AHI of 49.9 during REM and worse in the supine by the position with an AHI of 36.4 while supine. Chronic hypersomnia with an Crane score of 12 Obesity with a BMI of 48.4 Becker Diet-controlled diabetes mellitus Plan Patient is in need for treatment. The patient will benefit from CPAP therapy. Obviously study was done approximately 2 years ago. For that reason, a confirmation of the sleep apnea will be needed. I do not see the need for a official polysomnogram and I'll going to give the patient a home sleep study to establish the diagnosis of sleep apnea and its severity and following that he will be given a CPAP titration. Encourage weight loss Maintain regular sleep schedule Maintaining good sleep hygiene measures Avoid driving specially when feeling drowsy or sleepy We'll continue to follow make further recommendations based on the progress. Sleep Note - Sleep Note Sleep Note: Temperature: Pulse Rate: Respiratory Rate: Blood Pressure: SpO2: Height: Weight: BMI: Neck Circumference:
== END ==
LOC: SLEEP 14:24
PROVIDERS: ATTEND Internal Medicine Critical Care Medicine
DX: G47.33 Obstructive sleep apnea (adult) (pediatric) (principal); E66.9 Obesity, unspecified; Z68.42 Body mass index [BMI] 45.0-49.9, adult; K75.81 Nonalcoholic steatohepatitis (NASH); G47.10 Hypersomnia, unspecified; E11.9 Type 2 diabetes mellitus without complications; Z79.4 Long term (current) use of insulin; Z87.891 Personal history of nicotine dependence
CPT/HCPCS: 99202

== ENCOUNTER 2021-12-27 08:44 | Emergency (ER) | payer BC ==
[2021-12-27 09:10] VITALS: TEMP 98.5
[2021-12-27 10:01] LABS: Basophils # (A) 0.1 k/uL (0-0.2); Basophils % (A) 1 %; Eosinophils # (A) 0.3 k/uL (0-0.7); Eosinophils % (A) 3 %; HCT 41.5 % (39.0-53.0); HGB 14.1 gm/dL (13.0-17.5); Lymphocytes # (A) 1.3 k/uL (1.0-4.8); Lymphocytes % (A) 14 %; MCH 28.2 pg (25.0-35.0); MCV 83.1 fL (80.0-100.0); Mean Platelet Volume 8.2; Monocytes # (A) 0.7 k/uL (0-1.0); Monocytes % (A) 7 %; Neutrophils # (A) 6.9 k/uL (1.3-7.7); Neutrophils % (A) 73 %; Platelet Count 268 k/uL (150-450); RDW 13.7 % (11.5-15.5); WBC 9.4 k/uL (3.8-10.6)
--- NOTE | 2021-12-27 10:06 | XR ---
EXAMINATION TYPE: XR chest 2V DATE OF EXAM: 12/27/2021 COMPARISON: 05/17/2011 TECHNIQUE: PA and lateral views submitted. HISTORY: Cough and syncope FINDINGS: The lungs are clear and there is no pneumothorax, pleural effusion, or focal pneumonia. Heart size normal. No overt failure. Biapical pleural thickening. Surgical clips seen in the abdomen. IMPRESSION: 1. No acute process.
[2021-12-27 10:19] LABS: ALT 136 U/L (4-49); AST 53 U/L (17-59); African American GFR (CKD) >90 (>60 ml/min/1.73 sqM); Albumin 4.5 g/dL (3.5-5.0); Alkaline Phosphatase 88 U/L (38-126); Anion Gap 11 mmol/L; Blood Urea Nitrogen 9 mg/dL (9-20); Calcium 8.8 mg/dL (8.4-10.2); Carbon Dioxide 27 mmol/L (22-30); Chloride 99 mmol/L (98-107); Creatine Kinase 376 U/L (55-170); Glucose 161 mg/dL (74-99); Lipase 54 U/L (23-300); Non-African American GFR(CKD) >90 (>60 ml/min/1.73 sqM); Sodium 137 mmol/L (137-145); Total Bilirubin 0.4 mg/dL (0.2-1.3); Total Protein 7.5 g/dL (6.3-8.2)
--- NOTE | 2021-12-27 10:57 | ED ---
Dizziness HPI - General Chief Complaint: Syncope Stated Complaint: cough, syncope Time Seen by Provider: 12/27/21 09:24 Source: patient, family, RN notes reviewed Mode of arrival: ambulatory Limitations: no limitations - History of Present Illness Initial Comments: 42-year-old male who states he is watching a baseball game last evening when he started coughing really hard and I see Woke up on the floor with some blood in his mouth from a abrasion to his left lip also complains right forehead pain and right occipital pain. He believes he may have fallen on his coffee table. He came in this morning he feels fine except for some pain over the head. MD Complaint: dizziness, lightheadedness - Related Data Home Medications Medication Instructions Recorded Confirmed L.acidoph,Paracasei, B.lactis 1 cap PO DAILY 06/29/15 01/18/17 [Probiotic] Fluticasone Nasal [place] [Flonase 1 spr EA NOSTRIL DAILY PRN 01/18/17 04/23/17 Nasal [place]] Previous Rx's Medication Instructions Recorded INSULIN ASPART (NovoLOG) [NovoLOG 14 unit SQ AC-TID #1 vial 01/21/17 (formulary)] Insulin Detemir (Levemir) [Levemir] 42 unit SQ HS #1 vial 01/21/17 Allergies Allergy/AdvReac Type Severity Reaction Status Date / Time No Known Allergies Allergy Verified 12/27/21 09:09 Review of Systems ROS Statement: Those systems with pertinent positive or pertinent negative responses have been documented in the HPI. ROS Other: All systems not noted in ROS Statement are negative. Past Medical History Past Medical History: Diabetes Mellitus, Liver Disease, Sleep Apnea/CPAP/BIPAP Additional Past Medical History / Comment(s): Non alocoholic fatty liver, hay fever History of Any Multi-Drug Resistant Organisms: None Reported Past Surgical History: Cholecystectomy Additional Past Surgical History / Comment(s): dental surg Past Anesthesia/Blood Transfusion Reactions: Unable to Obtain Additional Past Anesthesia/Blood Transfusion Reaction / Comment(s): no surg. Past Psychological History: No Psychological Hx Reported Smoking Status: Never smoker Past Alcohol Use History: Occasional Past Drug Use History: None Reported - Past Family History Mother Family Medical History: No Reported History General Exam - General Exam Comments Initial Comments: This is a well-developed well-nourished awake alert oriented 3 male with a [place] Coma Scale of 15 Limitations: no limitations General appearance: alert, in no apparent distress Head exam: Present: normocephalic, normal inspection, other (Abrasion seen above the right eyebrow with some mild tenderness no step-off or crepitation also tenderness over the right occiput slight edema no step-off or crepitation) Eye exam: Present: normal appearance, PERRL, EOMI. Absent: scleral icterus, conjunctival injection, periorbital swelling ENT exam: Present: mucous membranes moist, other (Right lower lip slightly swollen abrasion noted no suture repair indicated. Dentition intact) Neck exam: Present: normal inspection, full ROM, other. Absent: tenderness, meningismus, lymphadenopathy Respiratory exam: Present: normal lung sounds bilaterally. Absent: respiratory distress, wheezes, rales, rhonchi, stridor Cardiovascular Exam: Present: regular rate, normal rhythm, normal heart sounds. Absent: systolic murmur, diastolic murmur, rubs, gallop, clicks GI/Abdominal exam: Present: soft, normal bowel sounds. Absent: distended, tenderness, guarding, rebound, rigid Extremities exam: Present: normal inspection, full ROM, normal capillary refill. Absent: tenderness, pedal edema, joint swelling, calf tenderness Back exam: Present: normal inspection Neurological exam: Present: alert, oriented X3, CN II-XII intact Psychiatric exam: Present: normal affect, normal mood Skin exam: Present: warm, dry, intact, normal color. Absent: rash Course Vital Signs 12/27/21 12/27/21 09:02 12:17 Temperature 98.5 F Pulse Rate 98 93 Respiratory 20 18 Rate Blood Pressure 143/85 117/84 O2 Sat by Pulse 98 98 Oximetry Procedures - [place] Protocol (Time Out) Nurse: Christopher Acosta Medical Decision Making - Medical Decision Making Patient is feeling well to [place] discuss findings with him he will be discharged his family member was present. No evidence of PE the presentation is consistent with cough syncope - Lab Data Result diagrams: 12/27/21 09:53 12/27/21 09:53 Lab Results 12/27/21 12/27/21 12/27/21 Range/Units 09:53 09:53 09:53 WBC 9.4 (3.8-10.6) k/uL RBC 5.00 (4.30-5.90) m/uL Hgb 14.1 (13.0-17.5) gm/dL Hct 41.5 (39.0-53.0) % MCV 83.1 (80.0-100.0) fL MCH 28.2 (25.0-35.0) pg MCHC 34.0 (31.0-37.0) g/dL RDW 13.7 (11.5-15.5) % Plt Count 268 (150-450) k/uL MPV 8.2 Neutrophils % 73 % Lymphocytes % 14 % Monocytes % 7 % Eosinophils % 3 % Basophils % 1 % Neutrophils # 6.9 (1.3-7.7) k/uL Lymphocytes # 1.3 (1.0-4.8) k/uL Monocytes # 0.7 (0-1.0) k/uL Eosinophils # 0.3 (0-0.7) k/uL Basophils # 0.1 (0-0.2) k/uL D-Dimer 0.74 H (<0.60) mg/L FEU Sodium 137 (137-145) mmol/L Potassium 4.0 (3.5-5.1) mmol/L Chloride 99 (98-107) mmol/L Carbon Dioxide 27 (22-30) mmol/L Anion Gap 11 mmol/L BUN 9 (9-20) mg/dL Creatinine 0.68 (0.66-1.25) mg/dL Est GFR (CKD-EPI)AfAm >90 (>60 ml/min/1.73 sqM) Est GFR (CKD-EPI)NonAf >90 (>60 ml/min/1.73 sqM) Glucose 161 H (74-99) mg/dL Calcium 8.8 (8.4-10.2) mg/dL Magnesium 2.0 (1.6-2.3) mg/dL Total Bilirubin 0.4 (0.2-1.3) mg/dL AST 53 (17-59) U/L ALT 136 H (4-49) U/L Alkaline Phosphatase 88 (38-126) U/L Creatine Kinase 376 H (55-170) U/L Troponin I (0.000-0.034) ng/mL Total Protein 7.5 (6.3-8.2) g/dL Albumin 4.5 (3.5-5.0) g/dL Lipase 54 (23-300) U/L TSH 4.560 (0.465-4.680) mIU/L 12/27/21 Range/Units 09:53 WBC (3.8-10.6) k/uL RBC (4.30-5.90) m/uL Hgb (13.0-17.5) gm/dL Hct (39.0-53.0) % MCV (80.0-100.0) fL MCH (25.0-35.0) pg MCHC (31.0-37.0) g/dL RDW (11.5-15.5) % Plt Count (150-450) k/uL MPV Neutrophils % % Lymphocytes % % Monocytes % % Eosinophils % % Basophils % % Neutrophils # (1.3-7.7) k/uL Lymphocytes # (1.0-4.8) k/uL Monocytes # (0-1.0) k/uL Eosinophils # (0-0.7) k/uL Basophils # (0-0.2) k/uL D-Dimer (<0.60) mg/L FEU Sodium (137-145) mmol/L Potassium (3.5-5.1) mmol/L Chloride (98-107) mmol/L Carbon Dioxide (22-30) mmol/L Anion Gap mmol/L BUN (9-20) mg/dL Creatinine (0.66-1.25) mg/dL Est GFR (CKD-EPI)AfAm (>60 ml/min/1.73 sqM) Est GFR (CKD-EPI)NonAf (>60 ml/min/1.73 sqM) Glucose (74-99) mg/dL Calcium (8.4-10.2) mg/dL Magnesium (1.6-2.3) mg/dL Total Bilirubin (0.2-1.3) mg/dL AST (17-59) U/L ALT (4-49) U/L Alkaline Phosphatase (38-126) U/L Creatine Kinase (55-170) U/L Troponin I <0.012 (0.000-0.034) ng/mL Total Protein (6.3-8.2) g/dL Albumin (3.5-5.0) g/dL Lipase (23-300) U/L TSH (0.465-4.680) mIU/L - Radiology Data Radiology results: report reviewed, image reviewed Disposition Clinical Impression: Cough syncope, Scalp contusion, Contusion, lip Disposition: HOME SELF-CARE Condition: Good Instructions (If sedation given, give patient instructions): Syncope (ED), Scalp Contusion in Adults (ED) Is patient prescribed a controlled substance at d/c from ED?: No Referrals: Alvaro Alicia DO [Primary Care Provider] - 1-2 days Decision Date: 12/27/21 Decision Time: 12:41
--- NOTE | 2021-12-27 11:49 | CT ---
EXAMINATION TYPE: CT brain wo con DATE OF EXAM: 12/27/2021 COMPARISON: None HISTORY: 41-year-old male trauma, pain, syncope TECHNIQUE: Examination was done in axial plane without intravenous contrast. Coronal and sagittal r econstructions performed. CT DLP: 1131.2 mGycm Automated exposure control for dose reduction was used. FINDINGS: There is no evidence of acute intracranial hemorrhage, acute ischemic changes, mass, mass-effect, or extra-axial fluid collection. There is no effacement of cerebral sulci or basal subarachnoid cister ns. There is no hydrocephalus. There is no midline shift. Sanchez-white matter distinction is preserv ed. Either a prominent perivascular space or old lacunar infarct left basal ganglia. Trace air-fluid level right maxillary sinus with mild mucosal thickening. Scattered mild mucosal thic kening ethmoid air cells as well. Mastoid air cells well pneumatized. Orbits and globes are intact. N o calvarial fracture. IMPRESSION: No acute intracranial abnormality seen. Possible mild acute on chronic right maxillary sinusitis.
--- NOTE | 2021-12-27 12:04 | CT ---
EXAMINATION TYPE: CT angio chest DATE OF EXAM: 12/27/2021 COMPARISON: None HISTORY: 41-year-old male cough, +covid 2 weeks ago TECHNIQUE: Contiguous axial scanning of the chest performed with IV Contrast, patient injected with 1 00 mL of Isovue 370. Coronal/sagittal MIP reconstructions performed. CT DLP: 963 mGycm Automated exposure control for dose reduction was used. FINDINGS: Heart upper limits of normal in size without pericardial effusion. No flattening of the interventricu lar septum reflux of contrast into the hepatic veins. Aorta normal caliber with bovine configuration to the aortic arch. Mild to moderate bilateral gynecomastia. No thoracic lymphadenopathy by CT size criteria. Satisfactory opacification the pulmonary arterial system. No evidence for pulmonary embolus. Mild dependent atelectasis posterior lower lobes. No consolidation or pleural effusion. Central airwa ys are clear. Small hiatal hernia. Low attenuation of the hepatic parenchyma suggesting underlying fatty infiltrati on. Bones: No osseous destructive process. IMPRESSION: 1. NO EVIDENCE FOR PULMONARY EMBOLUS. NO ACUTE PULMONARY PROCESS SEEN. 2. SMALL HIATAL HERNIA. 3. HEPATIC STEATOSIS. CORRELATE WITH LFT's, LIPID PROFILE, AND PATIENT RISK FACTORS.
[2021-12-27 12:18] VITALS: BP 117/84; PULSE 93; RESP 18
== END 2021-12-27 13:02 | disposition home or self-care (01) ==
LOC: EC 08:44
DX: S00.03XA Contusion of scalp, initial encounter (principal); S00.531A Contusion of lip, initial encounter; R55 Syncope and collapse; R05.9 Cough, unspecified; E11.9 Type 2 diabetes mellitus without complications; X58.XXXA Exposure to other specified factors, initial encounter
CPT/HCPCS: 36415; 93005; 85379; 80053; 84443; 82550; 83690; 83735; 84484; 85025; 71046; 70450; 71275; 99285; Q9967

== ENCOUNTER 2022-02-05 13:59 | Emergency (ER) | payer BC ==
[2022-02-05 15:06] LABS: Basophils % (A) 0 %; Eosinophils # (A) 0.1 k/uL (0-0.7); Eosinophils % (A) 1 %; HCT 45.6 % (39.0-53.0); HGB 15.4 gm/dL (13.0-17.5); Lymphocytes # (A) 1.3 k/uL (1.0-4.8); Lymphocytes % (A) 11 %; MCH 28.6 pg (25.0-35.0); MCHC 33.7 g/dL (31.0-37.0); MCV 84.8 fL (80.0-100.0); Mean Platelet Volume 7.8; Monocytes # (A) 0.7 k/uL (0-1.0); Monocytes % (A) 7 %; Neutrophils # (A) 8.9 k/uL (1.3-7.7); Neutrophils % (A) 80 %; Platelet Count 285 k/uL (150-450); RBC 5.38 m/uL (4.30-5.90); RDW 13.9 % (11.5-15.5); WBC 11.2 k/uL (3.8-10.6)
[2022-02-05 15:16] LABS: ALT 105 U/L (4-49); AST 38 U/L (17-59); African American GFR (CKD) >90 (>60 ml/min/1.73 sqM); Albumin 4.6 g/dL (3.5-5.0); Alkaline Phosphatase 91 U/L (38-126); Amylase 46 U/L (30-110); Anion Gap 8 mmol/L; Blood Urea Nitrogen 8 mg/dL (9-20); Calcium 8.5 mg/dL (8.4-10.2); Carbon Dioxide 24 mmol/L (22-30); Chloride 107 mmol/L (98-107); Glucose 119 mg/dL (74-99); Lipase 87 U/L (23-300); Non-African American GFR(CKD) >90 (>60 ml/min/1.73 sqM); Potassium 3.8 mmol/L (3.5-5.1); Sodium 139 mmol/L (137-145); Total Bilirubin 0.4 mg/dL (0.2-1.3); Total Protein 7.7 g/dL (6.3-8.2)
--- NOTE | 2022-02-05 15:31 | XR ---
EXAMINATION TYPE: XR KUB DATE OF EXAM: 02/05/2022 3:13 PM CLINICAL HISTORY: Abdominal pain. Constipation and vomiting. TECHNIQUE: Two Upright KUB images of the abdomen are obtained. COMPARISON: None. FINDINGS: Gas seen in nondistended stomach. Scattered gas is seen in non-distended small bowel loops. Some scattered air-fluid levels prominent in the bilateral lower quadrants is nonspecific finding. C holecystectomy clips are seen. No free air. Lung bases are clear. Osseous structures are intact. IMPRESSION: Overall nonspecific but favor nonobstructive bowel gas pattern.
[2022-02-05 15:33] LABS: Appearance,Urine Clear (Clear); Bilirubin,Urine Negative (Negative); Blood,Urine Negative (Negative); Color,Urine Yellow; Glucose,Urine (UA) Negative (Negative); Ketones,Urine Negative (Negative); Leukocyte Esterase,Urine Negative (Negative); Nitrite,Urine Negative (Negative); Protein,Urine Trace (Negative); Urobilinogen,Urine <2.0 mg/dL (<2.0)
[2022-02-05] MEDS ORDERED: SODIUM CHLORIDE 0.9% 1,000 ML IV STA (16:14)
--- NOTE | 2022-02-05 16:53 | ED ---
Abdominal Pain HPI - General Chief Complaint: Abdominal Pain Stated Complaint: ABD Pain Time Seen by Provider: 02/05/22 16:04 Source: patient Mode of arrival: ambulatory Limitations: no limitations - History of Present Illness Initial Comments: Patient is a 42 -[place] male presenting to the emergency room with complaints of intermittent abdominal pain with diarrhea ongoing for 3 days. He reports episode of nausea and vomiting 2 days ago but none in the last 24 hours. He states that symptoms began after eating Thanksgiving dinner followed by a [place] cheesesteak all of which was prepared in his home. He denies any nausea at this time. He is unsure how many bowel movements he is having a day reports that they're brown and liquid in nature he denies any mucus or blood in his stool. He denies any chest pain, shortness of breath, hematuria or dysuria, headache, weakness, fevers or chills. He denies any known exposure to COVID or flu. He has a past medical history significant for diabetes, managed and obstructive sleep apnea. - Related Data Home Medications Medication Instructions Recorded Confirmed L.acidoph,Paracasei, B.lactis 1 cap PO DAILY 06/29/15 01/18/17 [Probiotic] Fluticasone Nasal [place] [Flonase 1 spr EA NOSTRIL DAILY PRN 01/18/17 04/23/17 Nasal [place]] Previous Rx's Medication Instructions Recorded INSULIN ASPART (NovoLOG) [NovoLOG 14 unit SQ AC-TID #1 vial 01/21/17 (formulary)] Insulin Detemir (Levemir) [Levemir] 42 unit SQ HS #1 vial 01/21/17 Dicyclomine [Bentyl] 20 mg PO QID #20 tablet 02/09/22 Metoclopramide [Reglan] 10 mg PO Q6H PRN #20 tab 02/09/22 Allergies Allergy/AdvReac Type Severity Reaction Status Date / Time No Known Allergies Allergy Verified 02/09/22 07:42 Review of Systems ROS Statement: Those systems with pertinent positive or pertinent negative responses have been documented in the HPI. ROS Other: All systems not noted in ROS Statement are negative. Past Medical History Past Medical History: Diabetes Mellitus, Liver Disease, Sleep Apnea/CPAP/BIPAP Additional Past Medical History / Comment(s): Non alocoholic fatty liver, hay fever History of Any Multi-Drug Resistant Organisms: None Reported Past Surgical History: Cholecystectomy Additional Past Surgical History / Comment(s): dental surg Past Anesthesia/Blood Transfusion Reactions: Unable to Obtain Additional Past Anesthesia/Blood Transfusion Reaction / Comment(s): no surg. Past Psychological History: No Psychological Hx Reported Smoking Status: Never smoker Past Alcohol Use History: Occasional Past Drug Use History: None Reported - Past Family History Mother Family Medical History: No Reported History General Exam Limitations: no limitations General appearance: alert, in no apparent distress, obese Head exam: Present: atraumatic, normocephalic, normal inspection Eye exam: Present: normal appearance, PERRL, EOMI. Absent: scleral icterus, conjunctival injection, periorbital swelling ENT exam: Present: normal exam, mucous membranes moist Neck exam: Present: normal inspection, full ROM Respiratory exam: Present: normal lung sounds bilaterally. Absent: respiratory distress, wheezes, rales, rhonchi, stridor Cardiovascular Exam: Present: regular rate, tachycardia (Mild), normal heart sounds. Absent: systolic murmur, diastolic murmur, rubs, gallop, clicks GI/Abdominal exam: Present: soft, normal bowel sounds, other (Rounded). Absent: distended, tenderness, guarding, rebound, rigid Rectal exam: Present: deferred Extremities exam: Present: normal inspection. Absent: pedal edema, joint swelling Back exam: Present: normal inspection, full ROM Neurological exam: Present: alert, oriented X3, CN II-XII intact Psychiatric exam: Present: normal affect, normal mood Skin exam: Present: warm, dry, intact, normal color. Absent: rash Course Vital Signs 02/05/22 02/05/22 02/05/22 14:16 16:37 17:00 Temperature 96.0 F L Pulse Rate 110 H 101 H 97 Respiratory 20 17 16 Rate Blood Pressure 140/82 147/79 152/78 O2 Sat by Pulse 98 99 98 Oximetry 02/05/22 17:30 Temperature 97.5 F L Pulse Rate 99 Respiratory 18 Rate Blood Pressure 156/87 O2 Sat by Pulse 100 Oximetry Medical Decision Making - Medical Decision Making 42-year-old -[place] male presented to the emergency room with complaints of intermittent abdominal pain and diarrhea ongoing for 3 days with 24 hours of nausea vomiting at the onset of illness. Laboratory studies of CBC and CMP completed by triage along with KUB. CBC reveals mild leukocytosis with a WBC of 11.2 neutrophils 8.9 no other significant abnormalities on CBC. CMP amylase and lipase reveal slightly elevated ALT at 105 slightly elevated glucose at 119 otherwise no significant abnormalities. Urinalysis reveals trace proteinuria. No ketones. Abdominal exam benign. KUB image interpreted by me shows nonobstructive bowel gas pattern cholecystectomy clips. Radiologist report also reviewed. No indication for other diagnostic imaging. Will add Coumadin influenza swabs and give IV fluid bolus. Covid and flu swabs negative. Tolerated IV fluid bolus well without further episodes of diarrhea during hospitalization. Will discharge home in stable condition encouraging conservative therapy of bland diet and plenty of fluid intake. Advised follow-up with primary care provider and return parameters to the emergency room discussed. Case discussed with Dr. Cook. - Lab Data Result diagrams: 02/05/22 14:59 02/05/22 14:59 Lab Results 02/05/22 02/05/22 02/05/22 Range/Units 14:59 14:59 15:12 WBC 11.2 H (3.8-10.6) k/uL RBC 5.38 (4.30-5.90) m/uL Hgb 15.4 (13.0-17.5) gm/dL Hct 45.6 (39.0-53.0) % MCV 84.8 (80.0-100.0) fL MCH 28.6 (25.0-35.0) pg MCHC 33.7 (31.0-37.0) g/dL RDW 13.9 (11.5-15.5) % Plt Count 285 (150-450) k/uL MPV 7.8 Neutrophils % 80 % Lymphocytes % 11 % Monocytes % 7 % Eosinophils % 1 % Basophils % 0 % Neutrophils # 8.9 H (1.3-7.7) k/uL Lymphocytes # 1.3 (1.0-4.8) k/uL Monocytes # 0.7 (0-1.0) k/uL Eosinophils # 0.1 (0-0.7) k/uL Basophils # 0.0 (0-0.2) k/uL Sodium 139 (137-145) mmol/L Potassium 3.8 (3.5-5.1) mmol/L Chloride 107 (98-107) mmol/L Carbon Dioxide 24 (22-30) mmol/L Anion Gap 8 mmol/L BUN 8 L (9-20) mg/dL Creatinine 0.82 (0.66-1.25) mg/dL Est GFR (CKD-EPI)AfAm >90 (>60 ml/min/1.73 sqM) Est GFR (CKD-EPI)NonAf >90 (>60 ml/min/1.73 sqM) Glucose 119 H (74-99) mg/dL Calcium 8.5 (8.4-10.2) mg/dL Total Bilirubin 0.4 (0.2-1.3) mg/dL AST 38 (17-59) U/L ALT 105 H (4-49) U/L Alkaline Phosphatase 91 (38-126) U/L Total Protein 7.7 (6.3-8.2) g/dL Albumin 4.6 (3.5-5.0) g/dL Amylase 46 (30-110) U/L Lipase 87 (23-300) U/L Urine Color Yellow Urine Appearance Clear (Clear) Urine pH 6.0 (5.0-8.0) Ur Specific [place] 1.030 (1.001-1.035) Urine Protein Trace H (Negative) Urine Glucose (UA) Negative (Negative) Urine Ketones Negative (Negative) Urine Blood Negative (Negative) Urine Nitrite Negative (Negative) Urine Bilirubin Negative (Negative) Urine Urobilinogen <2.0 (<2.0) mg/dL Ur Leukocyte Esterase Negative (Negative) Coronavirus (PCR) (Not Detectd) Influenza Type A RNA (Not Detectd) Influenza Type B (PCR) (Not Detectd) 02/05/22 02/05/22 Range/Units 16:16 16:16 WBC (3.8-10.6) k/uL RBC (4.30-5.90) m/uL Hgb (13.0-17.5) gm/dL Hct (39.0-53.0) % MCV (80.0-100.0) fL MCH (25.0-35.0) pg MCHC (31.0-37.0) g/dL RDW (11.5-15.5) % Plt Count (150-450) k/uL MPV Neutrophils % % Lymphocytes % % Monocytes % % Eosinophils % % Basophils % % Neutrophils # (1.3-7.7) k/uL Lymphocytes # (1.0-4.8) k/uL Monocytes # (0-1.0) k/uL Eosinophils # (0-0.7) k/uL Basophils # (0-0.2) k/uL Sodium (137-145) mmol/L Potassium (3.5-5.1) mmol/L Chloride (98-107) mmol/L Carbon Dioxide (22-30) mmol/L Anion Gap mmol/L BUN (9-20) mg/dL Creatinine (0.66-1.25) mg/dL Est GFR (CKD-EPI)AfAm (>60 ml/min/1.73 sqM) Est GFR (CKD-EPI)NonAf (>60 ml/min/1.73 sqM) Glucose (74-99) mg/dL Calcium (8.4-10.2) mg/dL Total Bilirubin (0.2-1.3) mg/dL AST (17-59) U/L ALT (4-49) U/L Alkaline Phosphatase (38-126) U/L Total Protein (6.3-8.2) g/dL Albumin (3.5-5.0) g/dL Amylase (30-110) U/L Lipase (23-300) U/L Urine Color Urine Appearance (Clear) Urine pH (5.0-8.0) Ur Specific [place] (1.001-1.035) Urine Protein (Negative) Urine Glucose (UA) (Negative) Urine Ketones (Negative) Urine Blood (Negative) Urine Nitrite (Negative) Urine Bilirubin (Negative) Urine Urobilinogen (<2.0) mg/dL Ur Leukocyte Esterase (Negative) Coronavirus (PCR) Not Detected (Not Detectd) Influenza Type A RNA Not Detected (Not Detectd) Influenza Type B (PCR) Not Detected (Not Detectd) - Radiology Data Radiology results: report reviewed, image reviewed X-ray KUB interpretation per radiologist overall nonspecific but favor nonobstructive bowel gas pattern. Cholecystectomy clips are intact. No free air. Disposition Clinical Impression: Acute diarrhea, Acute abdomen Disposition: HOME SELF-CARE Condition: Stable Instructions (If sedation given, give patient instructions): Acute Diarrhea (ED), Abdominal Pain (ED) Additional Instructions: Please stay well hydrated. [place] diet encouraged. Please follow-up with your primary care provider. Please return to the Emergency Department if symptoms worsen or any other concerns. Is patient prescribed a controlled substance at d/c from ED?: No Referrals: Alvaro Alicia DO [Primary Care Provider] - 1-2 days Time of Disposition: 17:48
[2022-02-05 17:54] VITALS: BP 156/87; RESP 18
[2022-02-05 17:55] VITALS: PULSE 99; TEMP 97.5
== END 2022-02-05 18:00 | disposition home or self-care (01) ==
LOC: EC 13:59
DX: R19.7 Diarrhea, unspecified (principal); R10.9 Unspecified abdominal pain; E11.9 Type 2 diabetes mellitus without complications; G47.30 Sleep apnea, unspecified; Z90.49 Acquired absence of other specified parts of digestive tract; Z20.822 Contact with and (suspected) exposure to COVID-19
CPT/HCPCS: 36415; 74018; 80053; 81003; 82150; 83690; 85025; 87502; 87635; 96360; 99284

== ENCOUNTER → 2022-02-06 | Outpatient (CLI) | payer BC ==
--- NOTE | 2022-02-06 15:58 | P.PN ---
Progress Note - Text Progress Note Date: 02/06/22 This is a 41-year-old male patient with known history of obstructive sleep apnea, severe, AHI of 30 worse during REM sleep. The patient is coming in for a compliancy check. The patient is currently using a newer generation ResMed 11 CPAP unit which is set at a APAP mode with a pressure minimum of 5 and a maximum of 15. On today's evaluation, the patient reports that he is doing well and he is sleep quality is improved and the patient's waken up more refreshed and alert during the day. He is using the air fit F 20 large size full facemask. Based on the compliance data that was collected between 01/06/2022 and 02/04/2022, the patient has been averaging around 4 hours and 35 minutes of CPAP use per night. The P 95th percentile pressure was 13.1. Leak max was 24 L/m and the patient is AHI is down to 0.3 indicating excellent uses. He has gained around 13 pounds since his last evaluation back in October 2021. Despite all this, he is feeling good. No major hypersomnia or sleepiness during the day. Does not take any naps. His treatment remains successful. He is using a climate line along with a newer generation CPAP unit. Has BP is 134/85 with a pulse of 114 and the respiration of 18 with a temperature of 96%. Weight is 328. Saturation 96% on room air oxygen. [place] is down to 5. Gen. appearance, obese, comfortable not acute distress. The patient appeared well nourished and normally developed. Vital signs as documented. Head exam is unremarkable. No scleral icterus or corneal arcus noted. Neck is without jugular venous distension, thyromegaly, or carotid bruits. Carotid upstrokes are brisk bilaterally. Patient has a Mallampati class IV Lungs are clear to auscultation and percussion. Cardiac exam reveals the PMI to be normally sized and situated. Rhythm is regular. First and second heart sounds normal. No murmurs, rubs or gallops. Abdominal exam reveals normal bowel sounds, no masses, no organomegaly and no aortic enlargement. Extremities are nonedematous and both femoral and pedal pulses are normal.Examination of the skin revealed no evidence of significant rashes, suspicious appearing nevi or other concerning lesions.Neurologically, the patient is awake and alert and the patient does not have any focal neurological deficit. Cranial nerves are essentially intact. Impression Severe DENNY with an AHI of 30, worse during REM and the patient has undergone successful CPAP therapy. Hypersomnia, improved while on CPAP therapy Obesity with interval 50 pounds weight gain. Current weight is up to 328 pounds Diabetes mellitus Nonalcoholic fatty liver disease Hayfever Plan Continue CPAP therapy the same level of pressure Treatment is successful Compliancy check was done No need for any adjustments Encourage weight loss Implement this sleep hygiene measures Very compliant to CPAP therapy See me back in one year
== END ==
LOC: SLEEP 15:11
PROVIDERS: ATTEND Internal Medicine Critical Care Medicine
DX: Z53.9 Procedure and treatment not carried out, unspecified reason (principal)

== ENCOUNTER 2022-02-09 07:29 | Emergency (ER) | payer BC ==
[2022-02-09 07:43] VITALS: RESP 18
[2022-02-09] MEDS ORDERED: SODIUM CHLORIDE 0.9% 1,000 ML IV STA (07:54)
[2022-02-09] MEDS ORDERED: ONDANSETRON 4 MG/2 ML VIAL IVP STA (07:54)
[2022-02-09] MEDS ORDERED: KETOROLAC 15 MG/ML 1 ML VIAL IVP STA (07:55)
[2022-02-09] MEDS ORDERED: PANTOPRAZOLE 40 MG/10 ML VIAL IVP STA (07:55)
[2022-02-09] MEDS ORDERED: DICYCLOMINE 10 MG/ML 2 ML AMP IM STA (07:57)
--- NOTE | 2022-02-09 08:46 | ED ---
Nausea/Vomiting/Diarrhea HPI - General Chief complaint: Nausea/Vomiting/Diarrhea Stated complaint: nausea, vomiting, weakness Time Seen by Provider: 02/09/22 07:40 Source: patient, EMS, RN notes reviewed Mode of arrival: EMS Limitations: no limitations - History of Present Illness Initial comments: This is a 42-year-old male who presents to the emergency department for nausea, vomiting, and diarrhea. States that approximately 9 days ago, he had the dose of one of his new diabetic medications increased. He initially had constipation, however afterwards, starting on Thanksgiving, 8 days ago, he started to have nausea, vomiting, and diarrhea. He subsequently developed cramping in the center of his abdomen. He was evaluated here on 02/05 and stat es that his symptoms were effectively managed at that time, however as soon as he got home, they ended up returning. He is having diarrhea after eating anything. He was given Zofran by his primary care provider yesterday, which he states was fairly effective. He had dropped off a stool sample at his primary care provider's office yesterday. States that this tested positive for blood, but has not received the rest of the results yet. He does not believe that food poisoning would have lasted this long. Denies any recent antibiotic use. He is established with Dr. Apodaca, gastroenterology. He believes that he saw her last month. Denies any fevers, chills, sore throat, cough, dyspnea, chest pain, palpitations, back pain, or headaches. MD complaint: nausea, vomiting, diarrhea, abdominal pain Onset/Timin -: days(s) Associated Abdominal Pain: Yes Location: diffuse - Related Data Home Medications Medication Instructions Recorded Confirmed L.acidoph,Paracasei, B.lactis 1 cap PO DAILY 06/29/15 01/18/17 [Probiotic] Fluticasone Nasal [place] [Flonase 1 spr EA NOSTRIL DAILY PRN 01/18/17 04/23/17 Nasal [place]] Previous Rx's Medication Instructions Recorded INSULIN ASPART (NovoLOG) [NovoLOG 14 unit SQ AC-TID #1 vial 01/21/17 (formulary)] Insulin Detemir (Levemir) [Levemir] 42 unit SQ HS #1 vial 01/21/17 Dicyclomine [Bentyl] 20 mg PO QID #20 tablet 02/09/22 Metoclopramide [Reglan] 10 mg PO Q6H PRN #20 tab 02/09/22 Allergies Allergy/AdvReac Type Severity Reaction Status Date / Time No Known Allergies Allergy Verified 02/09/22 07:42 Review of Systems ROS Statement: Those systems with pertinent positive or pertinent negative responses have been documented in the HPI. ROS Other: All systems not noted in ROS Statement are negative. Past Medical History Past Medical History: Diabetes Mellitus, Liver Disease, Sleep Apnea/CPAP/BIPAP Additional Past Medical History / Comment(s): Non alocoholic fatty liver, hay fever History of Any Multi-Drug Resistant Organisms: None Reported Past Surgical History: Cholecystectomy Additional Past Surgical History / Comment(s): dental surg Past Anesthesia/Blood Transfusion Reactions: Unable to Obtain Additional Past Anesthesia/Blood Transfusion Reaction / Comment(s): no surg. Past Psychological History: No Psychological Hx Reported Smoking Status: Never smoker Past Alcohol Use History: Occasional Past Drug Use History: None Reported - Past Family History Mother Family Medical History: No Reported History General Exam Limitations: no limitations General appearance: alert, in no apparent distress Head exam: Present: atraumatic, normocephalic, normal inspection Respiratory exam: Present: normal lung sounds bilaterally. Absent: respiratory distress, wheezes, rales, rhonchi, stridor Cardiovascular Exam: Present: regular rate, normal rhythm, normal heart sounds. Absent: systolic murmur, diastolic murmur, rubs, gallop, clicks GI/Abdominal exam: Present: soft, hyperactive bowel sounds. Absent: distended, tenderness Neurological exam: Present: alert, oriented X3, CN II-XII intact Psychiatric exam: Present: normal affect, normal mood Skin exam: Present: warm, dry, intact, normal color. Absent: rash Course Vital Signs 02/09/22 02/09/22 02/09/22 07:35 08:58 13:18 Temperature 97.3 F L 97.5 F L Pulse Rate 98 98 95 Respiratory 18 18 18 Rate Blood Pressure 122/80 161/85 133/72 O2 Sat by Pulse 99 97 98 Oximetry Medical Decision Making - Medical Decision Making This is a 42-year-old male who presents to the emergency department for nausea, vomiting, and diarrhea. He was given IV fluids, Zofran, Toradol, Protonix, and Bentyl. He states that the medication improved his symptoms, however he still felt some gurgling and cramping in his stomach. He was given a dose of Lomotil as well, which he believes further helped his symptoms. He was given Jell-O, crackers, and water, and was able to tolerate oral intake without any difficulties. Lab work obtained revealing no actionable findings and C. diff testing was negative. Stool culture and lactoferrin tests are pending. Advised the patient that these results can be reviewed in his patient and portal and he can discuss them with his primary care provider. Due to the unremarkable lab work, no localized abdominal pain, and improvement in symptoms, no imaging is necessary at this time. Patient is in agreement with this. Prescriptions for Reglan and Bentyl provided and dosing instructions reviewed. Advised he edin nue with the Zofran that his PCP prescribed, however if he finds that it is not effective, he can alternate with Reglan as well. Recommend he remain well- hydrated and slowly advance his diet as tolerated. I also instructed him to contact Dr. Apodaca's office for a follow-up appointment to discuss his ongoing symptoms. Return precautions reviewed in depth, the patient is instructed to return to the emergency department with any new, worsening, or concerning symptoms. Patient verbalized understanding. This case was discussed in detail with the attending ED physician. Presentation, findings, and treatment plan discussed in detail as well. - Lab Data Result diagrams: 02/09/22 08:35 02/09/22 08:35 Lab Results 02/09/22 02/09/22 02/09/22 Range/Units 08:35 08:35 08:35 WBC 9.7 (3.8-10.6) k/uL RBC 5.59 (4.30-5.90) m/uL Hgb 16.0 (13.0-17.5) gm/dL Hct 46.6 (39.0-53.0) % MCV 83.5 (80.0-100.0) fL MCH 28.6 (25.0-35.0) pg MCHC 34.2 (31.0-37.0) g/dL RDW 14.0 (11.5-15.5) % Plt Count 340 (150-450) k/uL MPV 8.3 Neutrophils % 71 % Lymphocytes % 15 % Monocytes % 9 % Eosinophils % 2 % Basophils % 1 % Neutrophils # 6.9 (1.3-7.7) k/uL Lymphocytes # 1.4 (1.0-4.8) k/uL Monocytes # 0.9 (0-1.0) k/uL Eosinophils # 0.2 (0-0.7) k/uL Basophils # 0.1 (0-0.2) k/uL Sodium 136 L (137-145) mmol/L Potassium 3.3 L (3.5-5.1) mmol/L Chloride 106 (98-107) mmol/L Carbon Dioxide 23 (22-30) mmol/L Anion Gap 7 mmol/L BUN 8 L (9-20) mg/dL Creatinine 1.01 (0.66-1.25) mg/dL Est GFR (CKD-EPI)AfAm >90 (>60 ml/min/1.73 sqM) Est GFR (CKD-EPI)NonAf >90 (>60 ml/min/1.73 sqM) Glucose 98 (74-99) mg/dL Calcium 7.6 L (8.4-10.2) mg/dL Total Bilirubin 0.5 (0.2-1.3) mg/dL AST 16 L (17-59) U/L ALT 40 (4-49) U/L Alkaline Phosphatase 90 (38-126) U/L Total Protein 5.9 L (6.3-8.2) g/dL Albumin 3.5 (3.5-5.0) g/dL Amylase 39 (30-110) U/L Lipase 32 (23-300) U/L Urine Color [place] Yellow Urine Appearance Clear (Clear) Urine pH 6.0 (5.0-8.0) Ur Specific [place] 1.007 (1.001-1.035) Urine Protein Negative (Negative) Urine Glucose (UA) Negative (Negative) Urine Ketones 2+ H (Negative) Urine Blood Negative (Negative) Urine Nitrite Negative (Negative) Urine Bilirubin Negative (Negative) Urine Urobilinogen <2.0 (<2.0) mg/dL Ur Leukocyte Esterase Negative (Negative) C. difficile (EIA) Intrp (Negative) 02/09/22 Range/Units 09:20 WBC (3.8-10.6) k/uL RBC (4.30-5.90) m/uL Hgb (13.0-17.5) gm/dL Hct (39.0-53.0) % MCV (80.0-100.0) fL MCH (25.0-35.0) pg MCHC (31.0-37.0) g/dL RDW (11.5-15.5) % Plt Count (150-450) k/uL MPV Neutrophils % % Lymphocytes % % Monocytes % % Eosinophils % % Basophils % % Neutrophils # (1.3-7.7) k/uL Lymphocytes # (1.0-4.8) k/uL Monocytes # (0-1.0) k/uL Eosinophils # (0-0.7) k/uL Basophils # (0-0.2) k/uL Sodium (137-145) mmol/L Potassium (3.5-5.1) mmol/L Chloride (98-107) mmol/L Carbon Dioxide (22-30) mmol/L Anion Gap mmol/L BUN (9-20) mg/dL Creatinine (0.66-1.25) mg/dL Est GFR (CKD-EPI)AfAm (>60 ml/min/1.73 sqM) Est GFR (CKD-EPI)NonAf (>60 ml/min/1.73 sqM) Glucose (74-99) mg/dL Calcium (8.4-10.2) mg/dL Total Bilirubin (0.2-1.3) mg/dL AST (17-59) U/L ALT (4-49) U/L Alkaline Phosphatase (38-126) U/L Total Protein (6.3-8.2) g/dL Albumin (3.5-5.0) g/dL Amylase (30-110) U/L Lipase (23-300) U/L Urine Color Urine Appearance (Clear) Urine pH (5.0-8.0) Ur Specific [place] (1.001-1.035) Urine Protein (Negative) Urine Glucose (UA) (Negative) Urine Ketones (Negative) Urine Blood (Negative) Urine Nitrite (Negative) Urine Bilirubin (Negative) Urine Urobilinogen (<2.0) mg/dL Ur Leukocyte Esterase (Negative) C. difficile (EIA) Intrp Negative (Negative) Disposition Clinical Impression: Gastroenteritis Disposition: HOME SELF-CARE Instructions (If sedation given, give patient instructions): Acute Nausea and Vomiting (ED), Acute Diarrhea (ED) Additional Instructions: Return to the emergency department with any new, worsening, or concerning symptoms. Try taking the Zofran as needed for nausea and vomiting. If the Zofran is not effective, you can alternate taking this with Reglan with this. Take the Bentyl 4 times daily to help with the diarrhea and cramping. Make sure that you remain well-hydrated and slowly advance your diet as tolerated. Contact Dr. Apodaca's office later today or early next week to get an appointment as soon as possible. Follow up with your primary care provider in 1-2 days. Prescriptions: Dicyclomine [Bentyl] 20 mg PO QID #20 tablet Metoclopramide [Reglan] 10 mg PO Q6H PRN #20 tab PRN Reason: Nausea And Vomiting Is patient prescribed a controlled substance at d/c from ED?: No Referrals: Alvaro Alicia DO [Primary Care Provider] - 1-2 days
[2022-02-09 08:53] LABS: Basophils # (A) 0.1 k/uL (0-0.2); Basophils % (A) 1 %; Eosinophils # (A) 0.2 k/uL (0-0.7); Eosinophils % (A) 2 %; HCT 46.6 % (39.0-53.0); Lymphocytes # (A) 1.4 k/uL (1.0-4.8); Lymphocytes % (A) 15 %; MCH 28.6 pg (25.0-35.0); MCHC 34.2 g/dL (31.0-37.0); MCV 83.5 fL (80.0-100.0); Mean Platelet Volume 8.3; Monocytes # (A) 0.9 k/uL (0-1.0); Monocytes % (A) 9 %; Neutrophils # (A) 6.9 k/uL (1.3-7.7); Neutrophils % (A) 71 %; Platelet Count 340 k/uL (150-450); RBC 5.59 m/uL (4.30-5.90); WBC 9.7 k/uL (3.8-10.6)
[2022-02-09 09:03] LABS: ALT 40 U/L (4-49); AST 16 U/L (17-59); African American GFR (CKD) >90 (>60 ml/min/1.73 sqM); Albumin 3.5 g/dL (3.5-5.0); Alkaline Phosphatase 90 U/L (38-126); Amylase 39 U/L (30-110); Anion Gap 7 mmol/L; Blood Urea Nitrogen 8 mg/dL (9-20); Calcium 7.6 mg/dL (8.4-10.2); Carbon Dioxide 23 mmol/L (22-30); Chloride 106 mmol/L (98-107); Glucose 98 mg/dL (74-99); Lipase 32 U/L (23-300); Non-African American GFR(CKD) >90 (>60 ml/min/1.73 sqM); Potassium 3.3 mmol/L (3.5-5.1); Sodium 136 mmol/L (137-145); Total Bilirubin 0.5 mg/dL (0.2-1.3); Total Protein 5.9 g/dL (6.3-8.2)
[2022-02-09 09:19] LABS: Appearance,Urine Clear (Clear); Bilirubin,Urine Negative (Negative); Blood,Urine Negative (Negative); Color,Urine Light Yellow; Glucose,Urine (UA) Negative (Negative); Ketones,Urine 2+ (Negative); Leukocyte Esterase,Urine Negative (Negative); Nitrite,Urine Negative (Negative); Protein,Urine Negative (Negative); Specific Gravity,Urine 1.007 (1.001-1.035); Urobilinogen,Urine <2.0 mg/dL (<2.0)
[2022-02-09] MEDS ORDERED: DIPHENOX-ATROP 2.5-0.025 MG 1 EACH TAB PO STA (12:14)
[2022-02-09] MEDS ORDERED: DIPHENOX-ATROP STARTER PACK 8 TAB BTL PO STA (12:59)
[2022-02-09 13:22] VITALS: BP 133/72; PULSE 95; TEMP 97.5
== END 2022-02-09 13:22 | disposition home or self-care (01) ==
LOC: EC 07:29
DX: K52.9 Noninfective gastroenteritis and colitis, unspecified (principal); E11.9 Type 2 diabetes mellitus without complications; Z79.899 Other long term (current) drug therapy
CPT/HCPCS: 36415; 80053; 82150; 83690; 85025; 81003; 87324; 87045; 87046; 99285; 96374; 96375 ×2; 96361 ×5; J0500; J2405; J1885; C9113; 83630

== ENCOUNTER 2023-08-25 04:38 | Emergency (ER) | payer BC ==
--- NOTE | 2023-08-25 06:33 | ED ---
Extremity Problem HPI - General Chief complaint: Extremity Problem,Nontraumatic Stated complaint: Neck Pain, Left Arm Pain Time Seen by Provider: 08/25/23 06:30 Source: patient, RN notes reviewed Mode of arrival: ambulatory Limitations: no limitations - History of Present Illness Initial comments: This is a 43-year-old male who presents to the emergency department for back pain and shoulder pain. States that this has been ongoing for the last couple of weeks. Pain is in the back of the left shoulder blade and states that he feels like he has "nerve pain" going down to the elbow. Denies any injuries, but states that this seems to be worse if he sleeps on it wrong or is in the same position for too long. He has been trying to massage out knots in his neck and applying lidocaine cream, which has been helpful. Denies any pain going to the chest. Denies any personal or family history of cardiac issues. MD Complaint: extremity pain - Related Data Home Medications Medication Instructions Recorded Confirmed L.acidoph,Paracasei, B.lactis 1 cap PO DAILY 06/29/15 01/18/17 [Probiotic] Fluticasone Nasal [place] [Flonase 1 spr EA NOSTRIL DAILY PRN 01/18/17 04/23/17 Nasal [place]] Previous Rx's Medication Instructions Recorded INSULIN ASPART (NovoLOG) [NovoLOG 14 unit SQ AC-TID #1 vial 01/21/17 (formulary)] Insulin Detemir (Levemir) [Levemir] 42 unit SQ HS #1 vial 01/21/17 Dicyclomine [Bentyl] 20 mg PO QID #20 tablet 02/09/22 Metoclopramide [Reglan] 10 mg PO Q6H PRN #20 tab 02/09/22 Lidocaine 5% Patch [Lidoderm] 1 patch TOPICAL DAILY PRN #30 patch 08/25/23 Naproxen Sodium 550 mg PO BID PRN #30 tablet 08/25/23 methocarbamoL [Robaxin-750] 1,500 mg PO TID PRN #30 tab 08/25/23 Allergies Allergy/AdvReac Type Severity Reaction Status Date / Time No Known Allergies Allergy Verified 08/25/23 04:45 Review of Systems ROS Statement: Those systems with pertinent positive or pertinent negative responses have been documented in the HPI. ROS Other: All systems not noted in ROS Statement are negative. Past Medical History Past Medical History: Diabetes Mellitus, Liver Disease, Sleep Apnea/CPAP/BIPAP Additional Past Medical History / Comment(s): Non alocoholic fatty liver, hay fever , hernia History of Any Multi-Drug Resistant Organisms: None Reported Past Surgical History: Cholecystectomy Additional Past Surgical History / Comment(s): dental surg, eye Past Anesthesia/Blood Transfusion Reactions: Unable to Obtain Additional Past Anesthesia/Blood Transfusion Reaction / Comment(s): no surg. Past Psychological History: Anxiety Smoking Status: Vaper Past Alcohol Use History: Rare Past Drug Use History: None Reported - Past Family History Mother Family Medical History: No Reported History General Exam Limitations: no limitations General appearance: alert, in no apparent distress Head exam: Present: atraumatic, normocephalic, normal inspection Respiratory exam: Present: normal lung sounds bilaterally. Absent: respiratory distress, wheezes, rales, rhonchi, stridor Cardiovascular Exam: Present: regular rate, normal rhythm, normal heart sounds. Absent: systolic murmur, diastolic murmur, rubs, gallop, clicks Extremities exam: Present: other (Tenderness to palpation over the posterior aspect of the left shoulder blade. Range of motion of the left upper extremity induces pain. 2+ radial pulses.) Neurological exam: Present: alert, oriented X3, CN II-XII intact Psychiatric exam: Present: normal affect, normal mood Skin exam: Present: warm, dry, intact, normal color. Absent: rash Course Vital Signs 08/25/23 08/25/23 04:45 06:45 Temperature 97.7 F 97.9 F Pulse Rate 95 88 Respiratory 18 15 Rate Blood Pressure 121/81 107/76 O2 Sat by Pulse 97 Oximetry Medical Decision Making - Medical Decision Making This is a 43 year old male who presents to the emergency department for left shoulder pain. Was pt. sent in by a medical professional or institution? @ -No Did you speak to anyone other than the patient for history? @ -No Did you review nursing and triage notes? @ -Yes, and I agree, it is accurate with regards to the patient's symptoms. Were old charts reviewed? @ -No Differential Diagnosis? @ -Differential Musculoskeletal: Muscular strain, contusion, ligament sprain, fracture, arthritis, septic arthritis, bursitis, cellulitis, muscle spasm, nerve compression, DVT, arterial occlusion, herpes zoster, electrolyte abnormality, tumor.... This is not meant to be in all inclusive list EKG interpreted by me (3pts min.)? @ -EKG interpreted by me demonstrating the following: Sinus rhythm. Ventricular rate 92 bpm, AR interval 178 ms, QRS duration 85 ms, QTc 374 ms. X-rays interpreted by me (1pt min.)? @ -Not obtained CT interpreted by me (1pt min.)? @ -Not obtained U/S interpreted by me (1pt. min.)? @ -Not obtained What testing was considered but not performed? (CT, X-rays, U/S, labs)? Why? @ -Cardiac testing including lab work and a chest x-ray, however patient declined due to improvement in symptoms. What meds were considered but not given? Why? @ -None Did you discuss the management of the patient with other professionals? @ -No Did you reconcile home meds? @ -No Was smoking cessation discussed for >3mins.? @ -No Was critical care preformed (if so, how long)? @ -No Were there social determinants of health that impacted care today? How? (Homelessness, low income, unemployed, alcoholism, drug addiction, transportation, low edu. Level, literacy, decrease access to med. care, snf, rehab)? @ -No Was there de-escalation of care discussed even if they declined? (Discuss DNR or withdrawal of care, Hospice)? @ -No What co-morbidities impacted this encounter? (DM, HTN, Smoking, COPD, CAD, Cancer, CVA, Hep., AIDS, mental health diagnosis, sleep apnea, morbid obesity)? @ -None Was patient admitted / discharged? @ -Discharged. Given the left upper extremity pain an EKG was performed revealing no ST changes. While the patient was in the waiting room for a period of time the pain did start to subside. I offered further testing with lab work and a chest x-ray to evaluate for any cardiac pathology, however patient declined. He has no history of cardiac issues. There is also no pain in the chest itself or shortness of breath. Pain is also reproducible and has been going on for a period of time at this point. Symptoms are likely musculoskeletal in nature, however I advised that a cardiac process cannot entirely be ruled out. He was given strict return parameters and advised to have close follow-up with his primary care provider. Prescription for Robaxin, n aproxen, and lidocaine patches provided with dosing instructions reviewed. Undiagnosed new problem with uncertain prognosis? @ -None Drug Therapy requiring intensive monitoring for toxicity (Heparin, Nitro, Insulin, Cardizem)? @ -None Were any procedures done? @ -None Diagnosis/symptom? @ -Left shoulder pain Acute, or Chronic, or Acute on Chronic? @ -Acute Uncomplicated (without systemic symptoms) or Complicated (systemic symptoms)? @ -Uncomplicated Side effects of treatment? @ -None Exacerbation, Progression, or Severe Exacerbation] @ -Not applicable Poses a threat to life or bodily function? @ -No Return precautions reviewed in depth, the patient is instructed to return to the emergency department with any new, worsening, or concerning symptoms. Patient verbalized understanding. This case was discussed in detail with the attending ED physician, Dr. Paul. Presentation, findings, and treatment plan discussed in detail as well. Disposition Clinical Impression: Left arm pain Disposition: HOME SELF-CARE Instructions (If sedation given, give patient instructions): Muscle Strain (ED), Shoulder Pain (ED) Additional Instructions: Return to the emergency department with any new, worsening, or concerning symptoms, especially if you develop pain more so in the chest. Take the naproxen twice daily with Tylenol as needed for pain relief. Do not take any other anti-inflammatories such as ibuprofen if you choose to take this. Take the Robaxin as 1 to 2 tablets up to 3-4 times daily. Be aware that this may make you drowsy. You can also apply the lidocaine patches daily. Follow up with your primary care provider in 1-2 days. Prescriptions: Lidocaine 5% Patch [Lidoderm] 1 patch TOPICAL DAILY PRN #30 patch PRN Reason: Pain Naproxen Sodium 550 mg PO BID PRN #30 tablet PRN Reason: Pain methocarbamoL [Robaxin-750] 1,500 mg PO TID PRN #30 tab PRN Reason: Pain Is patient prescribed a controlled substance at d/c from ED?: No Referrals: Alvaro Alicia DO [Primary Care Provider] - 1-2 days Time of Disposition: 06:33
[2023-08-25 06:50] VITALS: BP 107/76; PULSE 88; RESP 15; TEMP 97.9
== END 2023-08-25 06:52 | disposition home or self-care (01) ==
LOC: EC 04:38
DX: M25.512 Pain in left shoulder (principal)
CPT/HCPCS: 93005; 99283

== ENCOUNTER 2024-06-16 15:55 | Emergency (ER) | payer BC ==
[2024-06-16 16:01] LABS: Glucose,Whole Blood 357 mg/dL (70-110)
--- NOTE | 2024-06-16 16:15 | ED ---
Recheck HPI - General Chief Complaint: Recheck/Abnormal Lab/Rx Stated Complaint: Irreg Labs Time Seen by Provider: 06/16/24 16:04 Source: patient, RN notes reviewed Mode of arrival: ambulatory Limitations: no limitations - History of Present Illness Initial Comments: This is a 44-year-old male with history of DM presenting with high blood sugar discovered today. Patient states he was at work, feeling warm, when he discovered his blood sugar was 463. Endorses transient confusion as well. States he used to take Mounjaro for his A1c was controlled at 5.3%. States he does not take any diabetic medication at this time, although A1c last month has been climbing again to 6.0%. Endorses taking an unknown dose of metformin before leaving work today, received from his boss. Otherwise denies significant symptoms at this time. Also mentions diarrhea for the past week following use of Bactrim DS. MD Complaint: abnormal lab Onset/Timin -: days(s) - Related Data Home Medications Medication Instructions Recorded Confirmed L.acidoph,Paracasei, B.lactis 1 cap PO DAILY 06/29/15 06/16/24 [Probiotic] Ashwagandha Root Extract 300 mg PO BID 06/16/24 06/16/24 [Ashwagandha] Cholecalciferol [Vitamin D3 (125 125 mcg PO DAILY 06/16/24 06/16/24 Mcg = 5000 Iu)] Ferrous Sulfate [Feosol] 325 mg PO DAILY 06/16/24 06/16/24 Milk Thistle 150 mg PO BID 06/16/24 06/16/24 Zinc Gluconate [Zinc] 50 mg PO DAILY 06/16/24 06/16/24 Allergies Allergy/AdvReac Type Severity Reaction Status Date / Time No Known Allergies Allergy Verified 06/16/24 17:03 Review of Systems ROS Statement: Those systems with pertinent positive or pertinent negative responses have been documented in the HPI. ROS Other: All systems not noted in ROS Statement are negative. Past Medical History Past Medical History: Diabetes Mellitus, Liver Disease, Sleep Apnea/CPAP/BIPAP Additional Past Medical History / Comment(s): Non alocoholic fatty liver, hay fever , hernia, crohns, ulcerative colitis History of Any Multi-Drug Resistant Organisms: None Reported Past Surgical History: Cholecystectomy Additional Past Surgical History / Comment(s): dental surg, eye Past Anesthesia/Blood Transfusion Reactions: Unable to Obtain Additional Past Anesthesia/Blood Transfusion Reaction / Comment(s): no surg. Past Psychological History: Anxiety, Depression Smoking Status: Former smoker Past Alcohol Use History: Rare Past Drug Use History: None Reported - Past Family History Mother Family Medical History: No Reported History General Exam Limitations: no limitations General appearance: alert, in no apparent distress Head exam: Present: atraumatic, normocephalic, normal inspection Eye exam: Present: normal appearance, PERRL, EOMI. Absent: scleral icterus, conjunctival injection, periorbital swelling ENT exam: Present: normal exam, mucous membranes moist Neck exam: Present: normal inspection. Absent: tenderness, meningismus, lymphadenopathy Respiratory exam: Present: normal lung sounds bilaterally. Absent: respiratory distress, wheezes, rales, rhonchi, stridor, accessory muscle use, decreased breath sounds, prolonged expiratory Cardiovascular Exam: Present: regular rate, normal rhythm, normal heart sounds. Absent: systolic murmur, diastolic murmur, rubs, gallop, clicks GI/Abdominal exam: Present: soft, normal bowel sounds. Absent: distended, tenderness, guarding, rebound, rigid Extremities exam: Present: normal inspection, full ROM, normal capillary refill. Absent: tenderness, pedal edema, joint swelling, calf tenderness Back exam: Present: normal inspection Neurological exam: Present: alert, oriented X3, CN II-XII intact Psychiatric exam: Present: normal affect, normal mood Skin exam: Present: warm, dry, intact, normal color. Absent: rash Course Vital Signs 06/16/24 06/16/24 15:57 18:07 Temperature 97.6 F Pulse Rate 122 H 103 H Respiratory 18 21 Rate Blood Pressure 156/85 134/73 O2 Sat by Pulse 97 97 Oximetry Medical Decision Making - Medical Decision Making Was pt. sent in by a medical professional or institution (, PA, PERSONAL CARE SERVICE PROVIDER, urgent care, hospital, or halfway...) When possible be specific @ -[No] Did you speak to anyone other than the patient for history (EMS, parent, family, police, friend...)? What history was obtained from this source @ -[No] Did you review nursing and triage notes (agree or disagree)? Why? @ -[I reviewed and agree with nursing and triage notes] Were old charts reviewed (outside hosp., previous admission, EMS record, old EKG, old radiological studies, urgent care reports/EKG's, halfway records)? Report findings @ -[No old charts were reviewed] Differential Diagnosis (chest pain, altered mental status, abdominal pain women, abdominal pain men, vaginal bleeding, weakness, fever, dyspnea, syncope, headache, dizziness, GI bleed, back pain, seizure, CVA, palpatations, mental health, musculoskeletal)? @ -Differential Altered Mental Status: Hypoglycemia, DKA, hypercapnia, ETOH, overdose, CO poisoning, trauma, myxedema coma, HTN encephalopathy, infection, encephalitis, psychosis, intercranial hemorrhage, hepatic encephalopathy, meningitis, CVA, this is not meant to be an all-inclusive list EKG interpreted by me (3pts min.). @ -Not done X-rays interpreted by me (1pt min.). @ -[None done] CT interpreted by me (1pt min.). @ -[None done] U/S interpreted by me (1pt. min.). @ -[None done] What testing was considered but not performed or refused? (CT, X-rays, U/S, labs)? Why? @ -[None] What meds were considered but not given or refused? Why? @ -[None] Did you discuss the management of the patient with other professionals (professionals i.e. , PA, PERSONAL CARE SERVICE PROVIDER, lab, RT, psych nurse, social service agency director, electrician control equipment, teacher, correction officer reformatory, case resource manager)? Give summary @ -[No] Was smoking cessation discussed for >3mins.? @ -[No] Was critical care preformed (if so, how long)? @ -[No] Were there social determinants of health that impacted care today? How? (Homelessness, low income, unemployed, alcoholism, drug addiction, transportation, low edu. Level, literacy, decrease access to med. care, assisted, rehab)? @ -[No] Was there de-escalation of care discussed even if they declined (Discuss DNR or withdrawal of care, Hospice)? DNR status @ -[No] What co-morbidities impacted this encounter? (DM, HTN, Smoking, COPD, CAD, Cancer, CVA, ARF, Chemo, Hep., AIDS, mental health diagnosis, sleep apnea, morbid obesity)? @ -DM Was patient admitted / discharged? Hospital course, mention meds given and route, prescriptions, significant lab abnormalities, going to OR and other pertinent info. @ -[hospital course] Undiagnosed new problem with uncertain prognosis? @ -[No] Drug Therapy requiring intensive monitoring for toxicity (Heparin, Nitro, Insulin, Cardizem)? @ -[No] Were any procedures done? @ -[No] Diagnosis/symptom? @ -[default] Acute, or Chronic, or Acute on Chronic? @ -Acute Uncomplicated (without systemic symptoms) or Complicated (systemic symptoms)? @ -Uncomplicated Side effects of treatment? @ -[No] Exacerbation, Progression, or Severe Exacerbation? @ -[No] Poses a threat to life or bodily function? How? (Chest pain, [place], [place], pneumonia, PE, COPD, DKA, ARF, appy, cholecystitis, CVA, Diverticulitis, Homicidal, Suicidal, threat to staff... and all critical care pts) @ -[No] - Lab Data Result diagrams: 06/16/24 16:33 06/16/24 16:33 Lab Results 06/16/24 06/16/24 06/16/24 Range/Units 15:59 16:33 16:33 WBC 10.36 H (4.50-10.00) 10*3/uL RBC 4.71 (4.40-5.60) 10*6/uL Hgb 14.0 (13.0-17.0) g/dL Hct 39.1 L (39.6-50.0) % MCV 83.0 (80.0-97.0) fL MCH 29.7 (27.0-32.0) pg MCHC 35.8 (32.0-37.0) g/dL Plt Count 318 (140-440) 10*3/uL MPV 9.8 (9.5-12.2) fL Immature Gran % (Auto) 0.7 % Neutrophils % 73.1 % Lymphocytes % 16.1 % Monocytes % 8.9 % Eosinophils % 0.3 % Basophils % 0.9 % Immature Gran # 0.07 H (0.00-0.04) 10*3/uL Neutrophils # 7.58 (1.80-7.70) 10*3/uL Lymphocytes # 1.67 (0.90-5.00) 10*3/uL Monocytes # 0.92 (0.20-1.00) 10*3/uL Eosinophils # 0.03 L (0.04-0.35) 10*3/uL Basophils # 0.09 (0.00-0.10) 10*3/uL Sodium (137-145) mmol/L Potassium (3.5-5.1) mmol/L Chloride (98-107) mmol/L Carbon Dioxide (22-30) mmol/L Anion Gap mmol/L BUN (9-20) mg/dL Creatinine (0.66-1.25) mg/dL Est GFR (CKD-EPI)AfAm (>60 ml/min/1.73 sqM) Est GFR (CKD-EPI)NonAf (>60 ml/min/1.73 sqM) Glucose (74-99) mg/dL POC Glucose (mg/dL) 357 H (70-110) mg/dL POC Glu Card Assembler ID [place] Calcium (8.4-10.2) mg/dL Magnesium (1.6-2.3) mg/dL Total Bilirubin (0.2-1.3) mg/dL AST (17-59) U/L ALT (4-49) U/L Alkaline Phosphatase (38-126) U/L Total Protein (6.3-8.2) g/dL Albumin (3.5-5.0) g/dL Urine Color Colorless Urine Appearance Clear (Clear) Urine pH 6.5 (5.0-8.0) Ur Specific [place] 1.033 (1.001-1.035) Urine Protein Negative (Negative) Urine Glucose (UA) 4+ H (Negative) Urine Ketones Trace H (Negative) Urine Blood Negative (Negative) Urine Nitrite Negative (Negative) Urine Bilirubin Negative (Negative) Urine Urobilinogen <2.0 (<2.0) mg/dL Ur Leukocyte Esterase Negative (Negative) Acetone, Qual (Negative) 06/16/24 06/16/24 Range/Units 16:33 18:11 WBC (4.50-10.00) 10*3/uL RBC (4.40-5.60) 10*6/uL Hgb (13.0-17.0) g/dL Hct (39.6-50.0) % MCV (80.0-97.0) fL MCH (27.0-32.0) pg MCHC (32.0-37.0) g/dL Plt Count (140-440) 10*3/uL MPV (9.5-12.2) fL Immature Gran % (Auto) % Neutrophils % % Lymphocytes % % Monocytes % % Eosinophils % % Basophils % % Immature Gran # (0.00-0.04) 10*3/uL Neutrophils # (1.80-7.70) 10*3/uL Lymphocytes # (0.90-5.00) 10*3/uL Monocytes # (0.20-1.00) 10*3/uL Eosinophils # (0.04-0.35) 10*3/uL Basophils # (0.00-0.10) 10*3/uL Sodium 132 L (137-145) mmol/L Potassium 4.2 (3.5-5.1) mmol/L Chloride 98 (98-107) mmol/L Carbon Dioxide 27 (22-30) mmol/L Anion Gap 7 mmol/L BUN 13 (9-20) mg/dL Creatinine 0.78 (0.66-1.25) mg/dL Est GFR (CKD-EPI)AfAm >90 (>60 ml/min/1.73 sqM) Est GFR (CKD-EPI)NonAf >90 (>60 ml/min/1.73 sqM) Glucose 356 H (74-99) mg/dL POC Glucose (mg/dL) 227 H (70-110) mg/dL POC Glu Card Assembler ID Ward Rosado Calcium 9.0 (8.4-10.2) mg/dL Magnesium 1.9 (1.6-2.3) mg/dL Total Bilirubin 0.6 (0.2-1.3) mg/dL AST 53 (17-59) U/L ALT 88 H (4-49) U/L Alkaline Phosphatase 96 (38-126) U/L Total Protein 8.0 (6.3-8.2) g/dL Albumin 4.2 (3.5-5.0) g/dL Urine Color Urine Appearance (Clear) Urine pH (5.0-8.0) Ur Specific [place] (1.001-1.035) Urine Protein (Negative) Urine Glucose (UA) (Negative) Urine Ketones (Negative) Urine Blood (Negative) Urine Nitrite (Negative) Urine Bilirubin (Negative) Urine Urobilinogen (<2.0) mg/dL Ur Leukocyte Esterase (Negative) Acetone, Qual Negative (Negative) Disposition Clinical Impression: Hyperglycemia, Diarrhea, Epigastric pain Disposition: HOME SELF-CARE Condition: Good Instructions (If sedation given, give patient instructions): Acute Diarrhea (ED), Diabetic Hyperglycemia (ED), Mediterranean Diet (DC), Gastritis (ED) Additional Instructions: Follow-up with PCP regarding elevated blood sugar levels and diarrhea Is patient prescribed a controlled substance at d/c from ED?: No Referrals: Alvaro Alicia DO [Primary Care Provider] - 1-2 days Time of Disposition: 18:59
[2024-06-16] MEDS: INSULIN LISPRO (HumaLOG) 100 UNIT/ML 10 mL VL SQ ONE (16:30)
[2024-06-16] MEDS: DIPHENOX-ATROP 2.5-0.025 MG 1 EACH TAB PO STA (16:31)
[2024-06-16] MEDS: SODIUM CHLORIDE 0.9% 1,000 ML IV STA (16:42)
[2024-06-16 16:52] LABS: Basophils # (A) 0.09 10*3/uL (0.00-0.10); Basophils % (A) 0.9 %; Eosinophils # (A) 0.03 10*3/uL (0.04-0.35); Eosinophils % (A) 0.3 %; HCT 39.1 % (39.6-50.0); Lymphocytes # (A) 1.67 10*3/uL (0.90-5.00); Lymphocytes % (A) 16.1 %; MCH 29.7 pg (27.0-32.0); MCHC 35.8 g/dL (32.0-37.0); Mean Platelet Volume 9.8 fL (9.5-12.2); Monocytes # (A) 0.92 10*3/uL (0.20-1.00); Monocytes % (A) 8.9 %; Neutrophils # (A) 7.58 10*3/uL (1.80-7.70); Neutrophils % (A) 73.1 %; Platelet Count 318 10*3/uL (140-440); RBC 4.71 10*6/uL (4.40-5.60); RDW 13.6 % (11.5-14.5); WBC 10.36 10*3/uL (4.50-10.00)
[2024-06-16 17:08] LABS: ALT 88 U/L (4-49); African American GFR (CKD) >90 (>60 ml/min/1.73 sqM); Anion Gap 7 mmol/L; Blood Urea Nitrogen 13 mg/dL (9-20); Carbon Dioxide 27 mmol/L (22-30); Chloride 98 mmol/L (98-107); Glucose 356 mg/dL (74-99); Non-African American GFR(CKD) >90 (>60 ml/min/1.73 sqM); Sodium 132 mmol/L (137-145); Total Bilirubin 0.6 mg/dL (0.2-1.3)
[2024-06-16 17:14] LABS: AST 53 U/L (17-59); Albumin 4.2 g/dL (3.5-5.0); Alkaline Phosphatase 96 U/L (38-126); Magnesium 1.9 mg/dL (1.6-2.3); Potassium 4.2 mmol/L (3.5-5.1)
[2024-06-16 18:11] LABS: Appearance,Urine Clear (Clear); Bilirubin,Urine Negative (Negative); Blood,Urine Negative (Negative); Color,Urine Colorless; Glucose,Urine (UA) 4+ (Negative); Ketones,Urine Trace (Negative); Leukocyte Esterase,Urine Negative (Negative); Nitrite,Urine Negative (Negative); PH, Urine 6.5 (5.0-8.0); Protein,Urine Negative (Negative); Specific Gravity,Urine 1.033 (1.001-1.035); Urobilinogen,Urine <2.0 mg/dL (<2.0)
[2024-06-16 18:12] LABS: Glucose,Whole Blood 227 mg/dL (70-110)
[2024-06-16] MEDS: DIPHENOX-ATROP STARTER PACK 8 TAB BTL PO STA (19:05)
[2024-06-16] MEDS: PANTOPRAZOLE 40 MG/10 ML VIAL IVP STA (19:06)
[2024-06-16] MEDS: FAMOTIDINE 20 MG/2 ML VIAL IV STA (19:08)
[2024-06-16] MEDS: LIDOCAINE VISCOUS 2% 15 ML CUP PO ONE (19:28)
[2024-06-16 20:09] VITALS: BP 126/73; PULSE 110; RESP 18; TEMP 98.1
== END 2024-06-16 20:09 | disposition home or self-care (01) ==
LOC: EC 15:55
DX: E11.65 Type 2 diabetes mellitus with hyperglycemia (principal); R10.13 Epigastric pain; R19.7 Diarrhea, unspecified; Z87.891 Personal history of nicotine dependence
CPT/HCPCS: 36415; 80053; 82009; 83735; 85025; 81003; 99283; 96374; 96375; 96361; J3490; J2470

== ENCOUNTER 2024-07-04 23:21 | Emergency (ER) | payer BC ==
--- NOTE | 2024-07-05 00:36 | XR ---
EXAMINATION TYPE: XR chest 2V DATE OF EXAM: 07/05/2024 CLINICAL INDICATION: Male, 44 years old with history of chest pain, TECHNIQUE: Frontal and lateral views of the chest are obtained. COMPARISON: CTA chest December 27, 2021 FINDINGS: There is no focal air space opacity, pleural effusion, or pneumothorax seen. The cardiac silhouette size is upper limits of normal. The osseous structures are intact. Cholecystectomy clips are redemonstrated. IMPRESSION: No acute process. [facility], , 07/05/2024 12:33 AM
[2024-07-05 00:40] LABS: Basophils # (A) 0.07 10*3/uL (0.00-0.10); Basophils % (A) 0.8 %; Eosinophils # (A) 0.11 10*3/uL (0.04-0.35); Eosinophils % (A) 1.2 %; HCT 39.5 % (39.6-50.0); HGB 13.7 g/dL (13.0-17.0); Lymphocytes # (A) 2.03 10*3/uL (0.90-5.00); Lymphocytes % (A) 22.3 %; MCHC 34.7 g/dL (32.0-37.0); MCV 83.7 fL (80.0-97.0); Mean Platelet Volume 10.2 fL (9.5-12.2); Monocytes # (A) 1.05 10*3/uL (0.20-1.00); Monocytes % (A) 11.5 %; Neutrophils # (A) 5.79 10*3/uL (1.80-7.70); Neutrophils % (A) 63.4 %; Platelet Count 329 10*3/uL (140-440); RBC 4.72 10*6/uL (4.40-5.60); RDW 13.9 % (11.5-14.5); WBC 9.12 10*3/uL (4.50-10.00)
[2024-07-05 00:51] LABS: INR 0.9 (<1.2); Partial Thromboplastin Time 23.6 sec (22.0-30.0); Prothrombin Time 10.2 sec (10.0-12.5)
[2024-07-05 01:04] LABS: ALT 129 U/L (4-49); AST 59 U/L (17-59); African American GFR (CKD) >90 (>60 ml/min/1.73 sqM); Albumin 4.2 g/dL (3.5-5.0); Alkaline Phosphatase 89 U/L (38-126); Anion Gap 9 mmol/L; Blood Urea Nitrogen 15 mg/dL (9-20); Calcium 9.9 mg/dL (8.4-10.2); Carbon Dioxide 25 mmol/L (22-30); Chloride 99 mmol/L (98-107); Glucose 281 mg/dL (74-99); Magnesium 1.8 mg/dL (1.6-2.3); Non-African American GFR(CKD) >90 (>60 ml/min/1.73 sqM); Potassium 4.1 mmol/L (3.5-5.1); Sodium 133 mmol/L (137-145); Total Bilirubin 0.4 mg/dL (0.2-1.3); Total Protein 7.9 g/dL (6.3-8.2)
--- NOTE | 2024-07-05 01:12 | ED ---
Chest Pain HPI - General Chief Complaint: Chest Pain Stated Complaint: Chest pain Time Seen by Provider: 07/04/24 23:41 Source: patient, RN notes reviewed Mode of arrival: ambulatory Limitations: no limitations - History of Present Illness Initial Comments: 44-year-old male with history of type 2 diabetes on insulin presenting for chest pain 3 hours ago. States around 9:30 PM tonight he was playing video games when he suddenly began to experience a sharp, left-sided chest pain worse with inspiration and movement. States the left chest is tender to touch. Denies nausea, vomiting, diaphoresis, abdominal pain. He does have a history of fatty liver in which he states he prefers to not take any NSAIDs or Tylenol. Denies blood thinners. No cardiac history. Denies injury or trauma. - Related Data Home Medications Medication Instructions Recorded Confirmed L.acidoph,Paracasei, B.lactis 1 cap PO DAILY 06/29/15 06/16/24 [Probiotic] Ashwagandha Root Extract 300 mg PO BID 06/16/24 06/16/24 [Ashwagandha] Cholecalciferol [Vitamin D3 (125 125 mcg PO DAILY 06/16/24 06/16/24 Mcg = 5000 Iu)] Ferrous Sulfate [Feosol] 325 mg PO DAILY 06/16/24 06/16/24 Milk Thistle 150 mg PO BID 06/16/24 06/16/24 Zinc Gluconate [Zinc] 50 mg PO DAILY 06/16/24 06/16/24 Allergies Allergy/AdvReac Type Severity Reaction Status Date / Time No Known Allergies Allergy Verified 07/04/24 23:35 Review of Systems ROS Statement: Those systems with pertinent positive or pertinent negative responses have been documented in the HPI. ROS Other: All systems not noted in ROS Statement are negative. EKG Findings - EKG Results: EKG: interpreted by ERMD (EKG reveals normal sinus rhythm with no acute ST changes. Ventricular rate 98 bpm, TX interval 185, QRS duration 79, QT/QTc 314/369) Past Medical History Past Medical History: Diabetes Mellitus, Liver Disease, Sleep Apnea/CPAP/BIPAP Additional Past Medical History / Comment(s): Non alocoholic fatty liver, hay fever , hernia, crohns, ulcerative colitis History of Any Multi-Drug Resistant Organisms: None Reported Past Surgical History: Cholecystectomy Additional Past Surgical History / Comment(s): dental surg, eye Past Anesthesia/Blood Transfusion Reactions: Unable to Obtain Additional Past Anesthesia/Blood Transfusion Reaction / Comment(s): no surg. Past Psychological History: Anxiety, Depression Smoking Status: Former smoker Past Alcohol Use History: Rare Past Drug Use History: None Reported - Past Family History Mother Family Medical History: No Reported History General Exam Limitations: no limitations General appearance: alert, in no apparent distress Head exam: Present: atraumatic, normocephalic, normal inspection Eye exam: Present: normal appearance, PERRL, EOMI. Absent: scleral icterus, conjunctival injection, periorbital swelling ENT exam: Present: normal exam, mucous membranes moist Neck exam: Present: normal inspection. Absent: tenderness, meningismus, lymphadenopathy Respiratory exam: Present: normal lung sounds bilaterally, chest wall tenderness (Reproducible left-sided chest wall tenderness). Absent: respiratory distress, wheezes, rales, rhonchi, stridor, accessory muscle use Cardiovascular Exam: Present: normal rhythm, tachycardia, normal heart sounds. Absent: systolic murmur, diastolic murmur, rubs, gallop, clicks GI/Abdominal exam: Present: soft, normal bowel sounds. Absent: distended, tenderness, guarding, rebound, rigid Neurological exam: Present: alert, oriented X3 Psychiatric exam: Present: normal affect, normal mood Skin exam: Present: warm, dry, intact, normal color. Absent: rash Course Vital Signs 07/04/24 07/05/24 23:33 01:54 Temperature 97.9 F Pulse Rate 108 H 85 Respiratory 18 16 Rate Blood Pressure 141/85 150/82 O2 Sat by Pulse 95 95 Oximetry Chest Pain MDM - MDM Was pt. sent in by a medical professional or institution (, PA, BACKBREAKER, urgent care, hospital, or skilled nursing...) When possible be specific @ -No Did you speak to anyone other than the patient for history (EMS, parent, family, police, friend...)? What history was obtained from this source @ -No Did you review nursing and triage notes (agree or disagree)? Why? @ -I reviewed and agree with nursing and triage notes Were old charts reviewed (outside hosp., previous admission, EMS record, old EKG, old radiological studies, urgent care reports/EKG's, skilled nursing records)? Report findings @ -No old charts were reviewed Differential Diagnosis (chest pain, altered mental status, abdominal pain women, abdominal pain men, vaginal bleeding, weakness, fever, dyspnea, syncope, h eadache, dizziness, GI bleed, back pain, seizure, CVA, palpatations, mental health, musculoskeletal)? @ -Differential Chest Pain: Stable Angina, Unstable Angina, STEMI, NSTEMI Aortic Dissection, Pneumothorax, Musculoskeletal, Esophageal Spasm GERD, Cholecystitis, Pancreatitis, Zoster, this is not meant to be an all-inclusive list. EKG interpreted by me (3pts min.). @ -As above X-rays interpreted by me (1pt min.). @ -Chest x-ray reveals no acute process CT interpreted by me (1pt min.). @ -None done U/S interpreted by me (1pt. min.). @ -None done What testing was considered but not performed or refused? (CT, X-rays, U/S, labs)? Why? @ -None What meds were considered but not given or refused? Why? @ -Patient declines aspirin as he states he does not like to take NSAIDs due to his fatty liver disease Did you discuss the management of the patient with other professionals (professionals i.e. , PA, BACKBREAKER, lab, RT, psych nurse, school social worker, anglesmith helper, teacher, digital controls technical officer, casework supervisor)? Give summary @ -No Was smoking cessation discussed for >3mins.? @ -No Was critical care preformed (if so, how long)? @ -No Were there social determinants of health that impacted care today? How? (Home lessness, low income, unemployed, alcoholism, drug addiction, transportation, low edu. Level, literacy, decrease access to med. care, penitentiary, rehab)? @ -No Was there de-escalation of care discussed even if they declined (Discuss DNR or withdrawal of care, Hospice)? DNR status @ -No What co-morbidities impacted this encounter? (DM, HTN, Smoking, COPD, CAD, Cancer, CVA, ARF, Chemo, Hep., AIDS, mental health diagnosis, sleep apnea, morbid obesity)? @ -None Was patient admitted / discharged? Hospital course, mention meds given and route, prescriptions, significant lab abnormalities, going to OR and other pertinent info. @ - discharge. 44-year-old male with history of diabetes presenting for chest pain x 3 hours. Patient is initially tachycardic at 108 bpm, otherwise vital signs within acceptable limits. Patient is well-appearing, no acute distress. There is noted left-sided reproducible chest tenderness to palpation. EKG reveals no acute ST changes. Chest x-ray reveals no acute process. Lab work remarkable for elevated glucose 281, normal white blood cell count of 9, undetectable troponin, elevated ALT 129 likely secondary to fatty liver disease, negative D-dimer. Upon reevaluation, patient is resting comfortably in no acute distress reports improvement of symptoms. Heart score is 3-low. As pain is reproducible likely MSK in nature. Patient can be discharged home with stri ct return precautions and close follow-up care. Case was discussed with my ED attending Dr. Diggs. Undiagnosed new problem with uncertain prognosis? @ -No Drug Therapy requiring intensive monitoring for toxicity (Heparin, Nitro, Insulin, Cardizem)? @ -No Were any procedures done? @ -No Diagnosis/symptom? @ -Chest pain Acute, or Chronic, or Acute on Chronic? @ -acute Uncomplicated (without systemic symptoms) or Complicated (systemic symptoms)? @ -Uncomplicated Side effects of treatment? @ -No Exacerbation, Progression, or Severe Exacerbation? @ -No Poses a threat to life or bodily function? How? (Chest pain, USA, ID, pneumonia, PE, COPD, DKA, ARF, appy, cholecystitis, CVA, Diverticulitis, Homicidal, Suicidal, threat to staff... and all critical care pts) @ -Unlikely at this time Disposition Clinical Impression: Chest pain Disposition: HOME SELF-CARE Condition: Stable Instructions (If sedation given, give patient instructions): Chest Pain (ED) Additional Instructions: Follow-up with your PCP within the week. Please return to the Emergency Department if symptoms worsen or any other concerns. Is patient prescribed a controlled substance at d/c from ED?: No Referrals: Alvaro Alicia DO [Primary Care Provider] - 1-2 days Time of Disposition: 02:11
[2024-07-05 02:43] VITALS: BP 154/83; PULSE 86; RESP 18; TEMP 98.1
== END 2024-07-05 02:42 | disposition home or self-care (01) ==
LOC: EC 23:21
DX: R07.89 Other chest pain (principal); Z87.891 Personal history of nicotine dependence
CPT/HCPCS: 36415; 71046; 80053; 83735; 84484; 85025; 85379; 85610; 85730; 93005; 99285

== ENCOUNTER 2024-07-15 21:54 | Emergency (ER) | payer BC ==
[2024-07-15 22:01] VITALS: RESP 18
[2024-07-15 22:04] LABS: Glucose,Whole Blood 433 mg/dL (70-110)
--- NOTE | 2024-07-15 22:56 | ED ---
Recheck HPI - General Source: patient, RN notes reviewed Mode of arrival: ambulatory Limitations: no limitations <Saji Lainez - Last Filed: 07/15/24 22:54> <Chito Orozco - Last Filed: 07/16/24 21:11> - General Chief Complaint: Recheck/Abnormal Lab/Rx Stated Complaint: Hyperglycemia Time Seen by Provider: 07/15/24 22:04 - History of Present Illness Initial Comments: Quick note: This is a 44-year-old male with history of insulin-dependent DM2 presenting for hyperglycemia (555) x 1 day. Patient states he worked all day without checking his blood sugar, checking it at home at 2132 with a finding over 500 mg/dL. Patient states he only takes short acting NovoLog as treatment for his diabetes, denying use of metformin. Patient denies any current symptoms/concerns other than high blood glucose reading. (Saji Lainez) 44-year-old male presenting with chief complaint of hyperglycemia. Patient has history of type 2 diabetes. States that he went to work today and forgot his glucometer at home. After getting home he checked his sugar and it was noted to be over 500. Took several other readings which were noted to be over 500. He is asymptomatic at this time and reports that he feels fine. He denies any nausea, vomiting, dizziness, blurred vision, fatigue, chest pain, difficulty breathing. Patient takes NovoLog, reports that he was previously on Mounjaro but his insurance recently denied so he is working with his PCP to find another medication. (Chito Orozco) - Related Data Home Medications Medication Instructions Recorded Confirmed L.acidoph,Paracasei, B.lactis 1 cap PO DAILY 06/29/15 06/16/24 [Probiotic] Ashwagandha Root Extract 300 mg PO BID 06/16/24 06/16/24 [Ashwagandha] Cholecalciferol [Vitamin D3 (125 125 mcg PO DAILY 06/16/24 06/16/24 Mcg = 5000 Iu)] Ferrous Sulfate [Feosol] 325 mg PO DAILY 06/16/24 06/16/24 Milk Thistle 150 mg PO BID 06/16/24 06/16/24 Zinc Gluconate [Zinc] 50 mg PO DAILY 06/16/24 06/16/24 Allergies Allergy/AdvReac Type Severity Reaction Status Date / Time No Known Allergies Allergy Verified 07/15/24 22:01 Review of Systems ROS Other: All systems not noted in ROS Statement are negative. <Saji Lainez - Last Filed: 07/15/24 22:54> ROS Other: All systems not noted in ROS Statement are negative. <OrozcoChito - Last Filed: 07/16/24 21:11> ROS Statement: Those systems with pertinent positive or pertinent negative responses have been documented in the HPI. Past Medical History Past Medical History: Diabetes Mellitus, Liver Disease, Sleep Apnea/CPAP/BIPAP Additional Past Medical History / Comment(s): Non alocoholic fatty liver, hay fever , hernia, crohns, ulcerative colitis History of Any Multi-Drug Resistant Organisms: None Reported Past Surgical History: Cholecystectomy Additional Past Surgical History / Comment(s): dental surg, eye Past Anesthesia/Blood Transfusion Reactions: Unable to Obtain Additional Past Anesthesia/Blood Transfusion Reaction / Comment(s): no surg. Past Psychological History: Anxiety, Depression Smoking Status: Former smoker Past Alcohol Use History: Rare Past Drug Use History: None Reported - Past Family History Mother Family Medical History: No Reported History <Saji Lainez - Last Filed: 07/15/24 22:54> General Exam Limitations: no limitations <Saji Lainez - Last Filed: 07/15/24 22:54> General appearance: alert, in no apparent distress Head exam: Present: atraumatic, normocephalic, normal inspection Eye exam: Present: normal appearance, EOMI Neck exam: Present: normal inspection. Absent: meningismus Respiratory exam: Present: normal lung sounds bilaterally. Absent: respiratory distress, wheezes, rales, rhonchi, stridor Cardiovascular Exam: Present: regular rate, normal rhythm, normal heart sounds. Absent: systolic murmur, diastolic murmur, rubs, gallop, clicks Neurological exam: Present: alert, oriented X3 Psychiatric exam: Present: normal affect, normal mood Skin exam: Present: warm, dry, normal color <OrozcoManedesmond - Last Filed: 07/16/24 21:11> - General Exam Comments Initial Comments: Visual Physical Exam Vital signs reviewed General: Well-appearing, nontoxic, no acute distress. Head: Normocephalic, atraumatic Eyes: PERRLA, EOMI ENT: Airway patent Chest: Nonlabored breathing Skin: No visual rash, normal skin tone Neuro: Alert and oriented 3 Musculoskeletal: No gross abnormalities (Saji Lainez) Course Vital Signs 07/15/24 07/16/24 21:57 01:50 Temperature 98.8 F 98.4 F Pulse Rate 102 H 84 Respiratory 18 18 Rate Blood Pressure 113/63 130/72 O2 Sat by Pulse 95 99 Oximetry Medical Decision Making <Saji Lainez - Last Filed: 07/15/24 22:54> - Lab Data Result diagrams: 07/15/24 23:42 07/15/24 23:42 <Chito Orozco - Last Filed: 07/16/24 21:11> - Medical Decision Making I completed the quick note portion of this chart signed MARINA Aldridge (Saji Lainez) Was pt. sent in by a medical professional or institution ([facility], WEB PUBLISHER, urgent care, hospital, or fdc...) When possible be specific @ -No Did you speak to anyone other than the patient for history (EMS, parent, family, police, friend...)? What history was obtained from this source @ -No Did you review nursing and triage notes (agree or disagree)? Why? @ -I reviewed and agree with nursing and triage notes Were old charts reviewed (outside hosp., previous admission, EMS record, old EKG, old radiological studies, urgent care reports/EKG's, fdc records)? Report findings @ -No old charts were reviewed Differential Diagnosis (chest pain, altered mental status, abdominal pain women, abdominal pain men, vaginal bleeding, weakness, fever, dyspnea, syncope, headache, dizziness, GI bleed, back pain, seizure, CVA, palpatations, mental health, musculoskeletal)? @ -Differential includes uncomplicated hyperglycemia, DKA, not an all-inclusive list EKG interpreted by me (3pts min.). @ -As above X-rays interpreted by me (1pt min.). @ -None done CT interpreted by me (1pt min.). @ -None done U/S interpreted by me (1pt. min.). @ -None done What testing was considered but not performed or refused? (CT, X-rays, U/S, labs)? Why? @ -None What meds were considered but not given or refused? Why? @ -None Did you discuss the management of the patient with other professionals (professionals i.e. DrCe, PA, WEB PUBLISHER, lab, RT, psych nurse, director social service, emergency room technician, teacher, science and operations officer, porter sample case)? Give summary @ -No Was smoking cessation discussed for >3mins.? @ -No Was critical care preformed (if so, how long)? @ -No Were there social determinants of health that impacted care today? How? (Homelessness, low income, unemployed, alcoholism, drug addiction, transportation, low edu. Level, literacy, decrease access to med. care, snf, rehab)? @ -No Was there de-escalation of care discussed even if they declined (Discuss DNR or withdrawal of care, Hospice)? DNR status @ -No What co-morbidities impacted this encounter? (DM, HTN, Smoking, COPD, CAD, Cancer, CVA, ARF, Chemo, Hep., AIDS, mental health diagnosis, sleep apnea, morbid obesity)? @ -None Was patient admitted / discharged? Hospital course, mention meds given and route, prescriptions, significant lab abnormalities, going to OR and other pertinent info. @ -44-year-old male presenting with chief complaint of hyperglycemia. The yong ent is currently asymptomatic. History and physical examination are conducted. Patient is not in DKA, his anion gap is 12. No ketonuria. Negative acetone. His initial glucose was 433, he took insulin at home prior to arrival and was given IV fluids here. On reassessment has come down to 342. The patient still feels well and has no complaints. Educated on today's findings. Discharge. Follow-up with PCP. Report back to ER with any new or worsening symptoms. Discussed return parameters and answered all questions. Patient conveyed verbal understanding and agreed to the plan. I discussed this case in detail with my attending Dr. Castellanos Undiagnosed new problem with uncertain prognosis? @ -No Drug Therapy requiring intensive monitoring for toxicity (Heparin, Nitro, Insulin, Cardizem)? @ -No Were any procedures done? @ -No Diagnosis/symptom? @ -Hyperglycemia Acute, or Chronic, or Acute on Chronic? @ -Acute Uncomplicated (without systemic symptoms) or Complicated (systemic symptoms)? @ -Uncomplicated Side effects of treatment? @ -No Exacerbation, Progression, or Severe Exacerbation? @ -No Poses a threat to life or bodily function? How? (Chest pain, USA, MA, pneumonia, PE, COPD, DKA, ARF, appy, cholecystitis, CVA, Diverticulitis, Homicidal, Suicidal, threat to staff... and all critical care pts) @ -No immediate threat (Chito Orozco) - Lab Data Lab Results 07/15/24 07/15/24 07/15/24 Range/Units 22:02 23:42 23:42 WBC 7.62 (4.50-10.00) 10*3/uL RBC 5.00 (4.40-5.60) 10*6/uL Hgb 14.4 (13.0-17.0) g/dL Hct 41.2 (39.6-50.0) % MCV 82.4 (80.0-97.0) fL MCH 28.8 (27.0-32.0) pg MCHC 35.0 (32.0-37.0) g/dL Plt Count 328 (140-440) 10*3/uL MPV 10.0 (9.5-12.2) fL Immature Gran % (Auto) 0.3 % Neutrophils % 57.2 % Lymphocytes % 28.7 % Monocytes % 11.3 % Eosinophils % 1.6 % Basophils % 0.9 % Immature Gran # 0.02 (0.00-0.04) 10*3/uL Neutrophils # 4.36 (1.80-7.70) 10*3/uL Lymphocytes # 2.19 (0.90-5.00) 10*3/uL Monocytes # 0.86 (0.20-1.00) 10*3/uL Eosinophils # 0.12 (0.04-0.35) 10*3/uL Basophils # 0.07 (0.00-0.10) 10*3/uL Sodium 134 L (137-145) mmol/L Potassium 3.7 (3.5-5.1) mmol/L Chloride 95 L (98-107) mmol/L Carbon Dioxide 27 (22-30) mmol/L Anion Gap 12 mmol/L BUN 10 (9-20) mg/dL Creatinine 0.67 (0.66-1.25) mg/dL Est GFR (CKD-EPI)AfAm >90 (>60 ml/min/1.73 sqM) Est GFR (CKD-EPI)NonAf >90 (>60 ml/min/1.73 sqM) Glucose 367 H (74-99) mg/dL POC Glucose (mg/dL) 433 H (70-110) mg/dL POC Glu Tar Heater Operator ID [place]na Malagon Calcium 9.8 (8.4-10.2) mg/dL Magnesium 2.1 (1.6-2.3) mg/dL Total Bilirubin 0.4 (0.2-1.3) mg/dL AST 39 (17-59) U/L ALT 129 H (4-49) U/L Alkaline Phosphatase 94 (38-126) U/L Total Protein 8.6 H (6.3-8.2) g/dL Albumin 4.6 (3.5-5.0) g/dL Urine Color Urine Appearance (Clear) Urine pH (5.0-8.0) Ur Specific [place] (1.001-1.035) Urine Protein (Negative) Urine Glucose (UA) (Negative) Urine Ketones (Negative) Urine Blood (Negative) Urine Nitrite (Negative) Urine Bilirubin (Negative) Urine Urobilinogen (<2.0) mg/dL Ur Leukocyte Esterase (Negative) Acetone, Qual Negative (Negative) 07/15/24 07/16/24 Range/Units 23:46 00:30 WBC (4.50-10.00) 10*3/uL RBC (4.40-5.60) 10*6/uL Hgb (13.0-17.0) g/dL Hct (39.6-50.0) % MCV (80.0-97.0) fL MCH (27.0-32.0) pg MCHC (32.0-37.0) g/dL Plt Count (140-440) 10*3/uL MPV (9.5-12.2) fL Immature Gran % (Auto) % Neutrophils % % Lymphocytes % % Monocytes % % Eosinophils % % Basophils % % Immature Gran # (0.00-0.04) 10*3/uL Neutrophils # (1.80-7.70) 10*3/uL Lymphocytes # (0.90-5.00) 10*3/uL Monocytes # (0.20-1.00) 10*3/uL Eosinophils # (0.04-0.35) 10*3/uL Basophils # (0.00-0.10) 10*3/uL Sodium (137-145) mmol/L Potassium (3.5-5.1) mmol/L Chloride (98-107) mmol/L Carbon Dioxide (22-30) mmol/L Anion Gap mmol/L BUN (9-20) mg/dL Creatinine (0.66-1.25) mg/dL Est GFR (CKD-EPI)AfAm (>60 ml/min/1.73 sqM) Est GFR (CKD-EPI)NonAf (>60 ml/min/1.73 sqM) Glucose (74-99) mg/dL POC Glucose (mg/dL) 342 H (70-110) mg/dL POC Glu Tar Heater Operator ID Wilfredo Malagon Calcium (8.4-10.2) mg/dL Magnesium (1.6-2.3) mg/dL Total Bilirubin (0.2-1.3) mg/dL AST (17-59) U/L ALT (4-49) U/L Alkaline Phosphatase (38-126) U/L Total Protein (6.3-8.2) g/dL Albumin (3.5-5.0) g/dL Urine Color Colorless Urine Appearance Clear (Clear) Urine pH 5.5 (5.0-8.0) Ur Specific [place] 1.035 (1.001-1.035) Urine Protein Negative (Negative) Urine Glucose (UA) 4+ H (Negative) Urine Ketones Negative (Negative) Urine Blood Negative (Negative) Urine Nitrite Negative (Negative) Urine Bilirubin Negative (Negative) Urine Urobilinogen <2.0 (<2.0) mg/dL Ur Leukocyte Esterase Negative (Negative) Acetone, Qual (Negative) Disposition <Saji Lainez - Last Filed: 07/15/24 22:54> Is patient prescribed a controlled substance at d/c from ED?: No Time of Disposition: 01:16 <Chito Orozco - Last Filed: 07/16/24 21:11> Clinical Impression: Hyperglycemia Disposition: HOME SELF-CARE Condition: Good Instructions (If sedation given, give patient instructions): Diabetic Hypergl ycemia (ED) Additional Instructions: Follow-up with PCP. Report back to ER with any new or worsening symptoms. Take your medications as prescribed. Referrals: Alvaro Alicia, [Primary Care Provider] - 1-2 days
[2024-07-15 23:48] LABS: Glucose,Whole Blood 342 mg/dL (70-110)
[2024-07-15 23:50] LABS: Basophils # (A) 0.07 10*3/uL (0.00-0.10); Basophils % (A) 0.9 %; Eosinophils # (A) 0.12 10*3/uL (0.04-0.35); Eosinophils % (A) 1.6 %; HCT 41.2 % (39.6-50.0); HGB 14.4 g/dL (13.0-17.0); Lymphocytes # (A) 2.19 10*3/uL (0.90-5.00); Lymphocytes % (A) 28.7 %; MCH 28.8 pg (27.0-32.0); MCV 82.4 fL (80.0-97.0); Monocytes # (A) 0.86 10*3/uL (0.20-1.00); Monocytes % (A) 11.3 %; Neutrophils # (A) 4.36 10*3/uL (1.80-7.70); Neutrophils % (A) 57.2 %; Platelet Count 328 10*3/uL (140-440); RDW 13.2 % (11.5-14.5); WBC 7.62 10*3/uL (4.50-10.00)
[2024-07-16 00:15] LABS: ALT 129 U/L (4-49); AST 39 U/L (17-59); African American GFR (CKD) >90 (>60 ml/min/1.73 sqM); Albumin 4.6 g/dL (3.5-5.0); Alkaline Phosphatase 94 U/L (38-126); Anion Gap 12 mmol/L; Blood Urea Nitrogen 10 mg/dL (9-20); Calcium 9.8 mg/dL (8.4-10.2); Carbon Dioxide 27 mmol/L (22-30); Chloride 95 mmol/L (98-107); Glucose 367 mg/dL (74-99); Magnesium 2.1 mg/dL (1.6-2.3); Non-African American GFR(CKD) >90 (>60 ml/min/1.73 sqM); Potassium 3.7 mmol/L (3.5-5.1); Sodium 134 mmol/L (137-145); Total Bilirubin 0.4 mg/dL (0.2-1.3); Total Protein 8.6 g/dL (6.3-8.2)
[2024-07-16] MEDS: SODIUM CHLORIDE 0.9% 1,000 ML IV ONE (00:32)
[2024-07-16 00:44] LABS: Appearance,Urine Clear (Clear); Bilirubin,Urine Negative (Negative); Blood,Urine Negative (Negative); Color,Urine Colorless; Glucose,Urine (UA) 4+ (Negative); Ketones,Urine Negative (Negative); Leukocyte Esterase,Urine Negative (Negative); Nitrite,Urine Negative (Negative); PH, Urine 5.5 (5.0-8.0); Protein,Urine Negative (Negative); Specific Gravity,Urine 1.035 (1.001-1.035); Urobilinogen,Urine <2.0 mg/dL (<2.0)
[2024-07-16 01:51] VITALS: BP 130/72; PULSE 84; TEMP 98.4
== END 2024-07-16 01:51 | disposition home or self-care (01) ==
LOC: EC 21:54
DX: E11.65 Type 2 diabetes mellitus with hyperglycemia (principal); Z87.891 Personal history of nicotine dependence; Z79.4 Long term (current) use of insulin
CPT/HCPCS: 36415; 80053; 81003; 82009; 83735; 85025; 96360; 99284